=== PATIENT | female | born 1980 | race Caucasian/White ===

== ENCOUNTER → 2016-05-26 | Day surgery (SDC) | payer MEDICAID, OTHER ==
[~2016-05-26] MED LIST: FENTANYL PF 100 MCG/2 ML VIAL. IV PRN; FLUO10CA13 PO; IV RINGERS,LACTATED 1000ML 1,000 ML IV SCH; LIDOCAINE 1% 1 ML SYRINGE. ID PRN; LIDOCAINE 2% PF Vial for OR 5 ML VIAL. ONE; ONDANSETRON PF 4 MG/2 ML VIAL. IV PRN; PROCHLORPERAZINE 10 MG/2 ML VIAL. IV PRN; PROPOFOL 20 ML IV ONE
[2016-05-26 12:26] LABS: NEG OBC UR NEG; POS OBC UR POS
[2016-05-26 13:44] VITALS: BP 114/79
--- NOTE | 2016-05-27 14:33 | PATHOLOGY ---
PATHOLOGY REPORT * * * * * * * * FINAL DIAGNOSIS: A. Duodenal biopsy: - No significant pathologic abnormalities. B. Random colon biopsy: - No significant pathologic abnormalities. COMMENT: Sections of the duodenal biopsy reveal segments of duodenal and small intestine mucosa. Where best oriented, the mucosal villi appear normal. There are no sprue-like changes or significant inflammatory changes. Sections of the random colon biopsy reveal multiple segments of colonic mucosa containing a few mucosal-associated lymphoid aggregates. There is no evidence of a chronic destructive colitis, lymphocytic colitis, or collagenous colitis. (JPM:; d/t: 05/27/16) REPORT ELECTRONICALLY SIGNED BY: Wild Tong M.D. DATE/TIME: 05/27/2016 14:32 * * * * * * * * GROSS PATHOLOGY: A. Received in formalin, labeled "Elin Mcmullen-duodenal biopsy" are multiple moncada-brown tissue fragments measuring 0.8 x 0.5 x 0.1 cm in aggregate. Total A1. B. Received in formalin, labeled "Elin Mcmullen-random colon biopsy" are multiple moncada-brown tissue fragments measuring 2.5 x 0.4 x 0.1 cm in aggregate. Total B1. ([facility]; 05/26/2016) INITIAL CPT CODE(S): A; 26532 B; 27816 Professional services [place] [place] [address] Technical services performed by [facility] at [address] [place] [address] [address] [address]. SPECIMEN(S) RECEIVED: A.Duodenal biopsy B.Random colon biopsy CLINICAL HISTORY: N/V, GI bleed PATIENT: STARR ELIN Dodson /AGE: 1 1980 (Age: 36) PATIENT #: [id number] ALT CASE #: SPECIMEN COLLECTION DATE: 05/26/2016 SPECIMEN RECEIVED DATE: 05/26/2016 [facility] - [address] [place] [address] - PHONE: [phone] * * * END OF REPORT * * *
== END | disposition home or self-care (01) ==
LOC: ENDOS 11:32
PROVIDERS: ATTEND Internal Medicine Gastroenterology
DX: K64.0 First degree hemorrhoids (principal); K52.9 Noninfective gastroenteritis and colitis, unspecified; K29.50 Unspecified chronic gastritis without bleeding; K21.9 Gastro-esophageal reflux disease without esophagitis; F41.9 Anxiety disorder, unspecified; Z72.89 Other problems related to lifestyle
CPT/HCPCS: 43239; 45380; 81025; 88305; J2704

== ENCOUNTER 2016-10-20 12:47 | Emergency (ER) | payer SELFPAY ==
[~2016-10-20 12:47] MED LIST changes: -FENTANYL PF 100 MCG/2 ML VIAL. IV PRN; -IV RINGERS,LACTATED 1000ML 1,000 ML IV SCH; -LIDOCAINE 1% 1 ML SYRINGE. ID PRN; -LIDOCAINE 2% PF Vial for OR 5 ML VIAL. ONE; -ONDANSETRON PF 4 MG/2 ML VIAL. IV PRN; -PROCHLORPERAZINE 10 MG/2 ML VIAL. IV PRN; -PROPOFOL 20 ML IV ONE
[2016-10-20 13:03] VITALS: BP 126/90
[2016-10-20] MEDS ORDERED: LORazepam 1 MG TABLET PO ONE (14:00)
--- NOTE | 2016-10-20 14:17 | PHYS DOC ---
Past Medical History Past Medical History: Anxiety, Depression, Other Additional Past Medical Histor: multipersonality disorder, gastritis; PTSD Past Surgical History: No Surgical History, Tubal ligation Alcohol Use: Heavy Drug Use: Marijuana Adult General Chief Complaint Chief Complaint: ANXIETY/PANIC ATTACK HPI HPI 28-year-old female presenting to the emergency department after having an anxiety attack. She reports feeling very anxious and having tunnel vision and feeling short of breath with numbness in her hands bilaterally. This happened while she was driving at 10 AM. She pulled over and had her bring her in for further evaluation and care. During history physical the patient is feeling better but accepted my offer for a small dose of calling medication. Onset today. Location generalized. Duration intermittent. No alleviating or exacerbating factors present. Review of systems is negative for fevers chills nausea vomiting diarrhea constipation. All other review of systems is negative unless otherwise noted in history of present illness. ED course: 36-year-old female presenting to the emergency department today with anxiety attack/panic attack. Patient received Ativan which improved her symptoms significantly. She was feeling much better on reexamination and subsequently discharged home. The patient was then discharged home in stable condition to follow up with their primary care physician over the next 2-3 days. They were to return if their symptoms worsened or if they were concerned for any reason. [id number] discharge instructions and return precautions were given. Patient's questions were answered to their satisfaction. Patient is comfortable plan. Review of Systems Review of Systems SEE ABOVE. Current Medications Current Medications Current Medications Medications (Trade) Dose Ordered Sig/[facility] Start Time Stop Time Status Last Admin Dose Admin Lorazepam (Ativan) 1 mg 1X ONCE 10/20/16 14:00 10/20/16 14:01 DC 10/20/16 14:02 1 MG Allergies Allergies Allergies Coded Allergies Type Severity Reaction Last Updated Verified hydrocodone Adverse Reaction Mild Nausea and Vomiting 05/26/16 Yes Physical Exam Physical Exam SEE ABOVE. Normal physical exam. Constitutional: Well developed, well nourished, no acute distress, non-toxic appearance. [] HENT: Normocephalic, atraumatic, bilateral external ears normal, oropharynx moist, no oral exudates, nose normal. [] Eyes: PERRLA, EOMI, conjunctiva normal, no discharge. [] Neck: Normal range of motion, no tenderness, supple, no stridor. [] Cardiovascular:Heart rate regular rhythm, no murmur [] Lungs & Thorax: Bilateral breath sounds clear to auscultation [] Abdomen: Bowel sounds normal, soft, no tenderness, no masses, no pulsatile masses. [] Skin: Warm, dry, no erythema, no rash. [] Back: No tenderness, no CVA tenderness. [] Extremities: No tenderness, no cyanosis, no clubbing, ROM intact, no edema. [] Neurologic: Alert and oriented X 3, normal motor function, normal sensory function, no focal deficits noted. [] Psychologic: Affect normal, judgement normal, mood normal. [] Current Patient Data Vital Signs Vital Signs Date Time Temp Pulse Resp B/P (MAP) Pulse Ox O2 Delivery O2 Flow Rate FiO2 10/20/16 13:03 97.9 77 18 126/90 (102) 99 Room Air 97.9 EKG EKG [] Radiology/Procedures Radiology/Procedures [] Course & Med Decision Making Course & Med Decision Making Pertinent Labs and Imaging studies reviewed. (See chart for details) [] Dragon Disclaimer Dragon Disclaimer This electronic medical record was generated, in whole or in part, using a voice recognition dictation system. Departure Departure Impression: Primary Impression: Panic attack Disposition: HOME, SELF-CARE Condition: STABLE Referrals: TU JENKINS MD (PCP) Patient Instructions: Anxiety and Panic Attacks NOHELIA MACARIO MD Oct 20, 2016 14:16
== END 2016-10-20 14:29 | disposition home or self-care (01) ==
LOC: ER 12:47
DX: F41.0 Panic disorder [episodic paroxysmal anxiety] (principal); F43.10 Post-traumatic stress disorder, unspecified; F32.9 Major depressive disorder, single episode, unspecified; F12.10 Cannabis abuse, uncomplicated; Z88.5 Allergy status to narcotic agent
CPT/HCPCS: 99284

== ENCOUNTER 2017-01-25 09:35 | Emergency (ER) | payer SELFPAY ==
[~2017-01-25] VITALS: Ht 162.6 cm; Wt 63.0 kg
--- NOTE | 2017-01-25 10:12 | PHYS DOC ---
Past Medical History Past Medical History: Anxiety, Depression, Other Additional Past Medical Histor: multipersonality disorder, gastritis; PTSD Past Surgical History: No Surgical History, Tubal ligation Alcohol Use: Heavy Drug Use: Marijuana Adult General Chief Complaint Chief Complaint: ABDOMINAL PAIN HPI HPI Patient is a 36 year old female presents to the emergency department with a history of abdominal pain and discomfort for the last 2 days. Patient states she has had vomiting the last 2 mornings. She denies fever, chills. She states she has had diarrhea for sometime in which she has seen a GI and had a colonoscopy completed that was negative. She states she was suppose to have followed up with them however did not. She does state she had eaten fried greasy fatty foods the night before vomiting and having abdominal pain. She has not taken anything for the pain and discomfort. Patient denies any change in her vaginal discharge. Review of Systems Review of Systems Constitutional: Denies fever or chills [] Eyes: Denies change in visual acuity, redness, or eye pain [] HENT: Denies nasal congestion or sore throat [] Respiratory: Denies cough or shortness of breath [] Cardiovascular: No additional information not addressed in HPI [] GI: Denies abdominal pain, nausea, vomiting, bloody stools or diarrhea [] : Denies dysuria or hematuria [] Musculoskeletal: Denies back pain or joint pain [] Integument: Denies rash or skin lesions [] Neurologic: Denies headache, focal weakness or sensory changes [] Endocrine: Denies polyuria or polydipsia [] Current Medications Current Medications Current Medications Medications (Trade) Dose Ordered Sig/[facility] Start Time Stop Time Status Last Admin Dose Admin Pantoprazole Sodium (Protonix) 40 mg 1X ONCE 01/25/17 10:15 01/25/17 10:16 DC 01/25/17 10:23 40 MG Allergies Allergies Allergies Coded Allergies Type Severity Reaction Last Updated Verified hydrocodone Adverse Reaction Mild Nausea and Vomiting 05/26/16 Yes Physical Exam Physical Exam Constitutional: Well developed, well nourished, no acute distress, non-toxic appearance. [] HENT: Normocephalic, atraumatic, bilateral external ears normal, oropharynx moist, no oral exudates, nose normal. [] Eyes: PERRLA, EOMI, conjunctiva normal, no discharge. [] Neck: Normal range of motion, no tenderness, supple, no stridor. [] Cardiovascular:Heart rate regular rhythm, no murmur [] Lungs & Thorax: Bilateral breath sounds clear to auscultation [] Abdomen: Bowel sounds normal, soft, Right upper quadrant abdominal tenderness and right suprapubic tenderness, no masses, no pulsatile masses. [] Skin: Warm, dry, no erythema, no rash. [] Extremities: No tenderness, no cyanosis, no clubbing, ROM intact, no edema. [] Neurologic: Alert and oriented X 3, normal motor function, normal sensory function, no focal deficits noted. [] Psychologic: Affect normal, judgement normal, mood normal. [] Current Patient Data Vital Signs Vital Signs Date Time Temp Pulse Resp B/P (MAP) Pulse Ox O2 Delivery O2 Flow Rate FiO2 01/25/17 11:30 60 115/69 (84) 98 Nasal Cannula 01/25/17 11:00 18 01/25/17 09:57 97.7 97.7 Lab Values Laboratory Tests Test 01/25/17 09:54 01/25/17 10:02 01/25/17 10:30 01/25/17 10:59 Urine Collection Type Unknown Urine Color Yellow Urine Clarity Clear Urine pH 6.5 Urine Specific [place] 1.015 Urine Protein Negative mg/dL (NEG-TRACE) Urine Glucose (UA) Negative mg/dL (NEG) Urine Ketones (Stick) Negative mg/dL (NEG) Urine Blood Negative (NEG) Urine Nitrite Negative (NEG) Urine Bilirubin Negative (NEG) Urine Urobilinogen Dipstick 0.2 mg/dL (0.2 mg/dL) Urine Leukocyte Esterase Small (NEG) Urine RBC 0 /HPF (0-2) Urine WBC 20-40 /HPF (0-4) Urine Squamous Epithelial Cells Few /LPF Urine Bacteria Many /HPF (0-FEW) POC Urine HCG, Qualitative Hcg negative (Negative) White Blood Count 8.0 x10^3/uL (4.0-11.0) Red Blood Count 4.37 x10^6/uL (3.50-5.40) Hemoglobin 14.1 g/dL (12.0-15.5) Hematocrit 41.4 % (36.0-47.0) Mean Corpuscular Volume 95 fL (79-100) Mean Corpuscular Hemoglobin 32 pg (25-35) Mean Corpuscular Hemoglobin Concent 34 g/dL (31-37) Red Cell Distribution Width 14.3 % (11.5-14.5) Platelet Count 346 x10^3/uL (140-400) Neutrophils (%) (Auto) 68 % (31-73) Lymphocytes (%) (Auto) 23 % (24-48) L Monocytes (%) (Auto) 7 % (0-9) Eosinophils (%) (Auto) 1 % (0-3) Basophils (%) (Auto) 1 % (0-3) Neutrophils # (Auto) 5.4 x10^3uL (1.8-7.7) Lymphocytes # (Auto) 1.8 x10^3/uL (1.0-4.8) Monocytes # (Auto) 0.5 x10^3/uL (0.0-1.1) Eosinophils # (Auto) 0.1 x10^3/uL (0.0-0.7) Basophils # (Auto) 0.1 x10^3/uL (0.0-0.2) Sodium Level 140 mmol/L (136-145) Potassium Level 3.7 mmol/L (3.5-5.1) Chloride Level 105 mmol/L (98-107) Carbon Dioxide Level 28 mmol/L (21-32) Anion Gap 7 (6-14) Blood Urea Nitrogen 11 mg/dL (7-20) Creatinine 0.6 mg/dL (0.6-1.0) Estimated GFR (Cockcroft-Gault) 111.9 BUN/Creatinine Ratio 18 (6-20) Glucose Level 96 mg/dL (70-99) Calcium Level 8.8 mg/dL (8.5-10.1) Total Bilirubin 0.7 mg/dL (0.2-1.0) Aspartate Amino Transferase (AST) 13 U/L (15-37) L Alanine Aminotransferase (ALT) 17 U/L (14-59) Alkaline Phosphatase 91 U/L (46-116) Total Protein 7.5 g/dL (6.4-8.2) Albumin 3.6 g/dL (3.4-5.0) Albumin/Globulin Ratio 0.9 (1.0-1.7) L Amylase Level 49 U/L (25-115) Lipase 175 U/L (73-393) Thyroid Stimulating Hormone (TSH) 1.635 uIU/mL (0.358-3.74) Troponin I Quantitative < 0.017 ng/mL (0.000-0.055) Laboratory Tests 01/25/17 10:30 Laboratory Tests 01/25/17 10:30 EKG EKG [] Radiology/Procedures Radiology/[place] [address] IMAGING REPORT Signed PATIENT: ALEXA CLEMENTS ACCOUNT: [id number] : 1980 LOCATION: ER AGE: 36 SEX: F EXAM STATUS: REG ER ORD. PHYSICIAN: KALLI MAY APRN REASON: chest discomfort with exspiration PROCEDURE: CHEST PA & LATERAL Indication chest discomfort. Frontal and lateral views of the chest were obtained. No prior imaging of the chest is available. The heart, pulmonary vessels and mediastinum appear normal. The lungs are clear. No abnormality is seen. IMPRESSION: Normal study DICTATED and SIGNED BY: DADA HERRERA MD DATE: 01/25/17 1051 CC: TU JENKINS MD; KALLI MAY APRN ~ [[address] [address] IMAGING REPORT Signed PATIENT: ALEXA CLEMENTS ACCOUNT: [id number] : 1980 LOCATION: ER AGE: 36 SEX: F EXAM STATUS: REG ER ORD. PHYSICIAN: KALLI MAY APRN REASON: right upper quadrant abdominal pain with nausea and vomiting PROCEDURE: ABDOMEN LTD Right upper quadrant abdominal ultrasound, 01/25/2017: History: Right upper quadrant pain The gallbladder is within normal limits in size. There is no sonographic evidence of cholelithiasis. The gallbladder pena are not thickened. No bile duct dilatation is seen. The visualized portions of the liver and pancreas are unremarkable. The right kidney demonstrates increased echogenicity in the medullary regions. There is no evidence of hydronephrosis. No renal mass is seen. IMPRESSION: 1. No gallbladder abnormality is detected. 2. Increased medullary echogenicity in the right kidney which can be due to a variety of causes including medullary sponge kidney with or without nephrocalcinosis, nephrocalcinosis due to other causes such as hyperparathyroidism or various medications. DICTATED and SIGNED BY: TIMOTHY AGUILLON MD DATE: 01/25/17 1058 CC: TU JENKINS MD; KALLI MAY [employer] ~ ] Course & Med Decision Making Course & Med Decision Making Pertinent Labs and Imaging studies reviewed. (See chart for details) Chest x-ray was negative for any abnormality. Ultrasound revealed no gallbladder abnormality detected there was an increased medullary echogenicity in the right kidney which may be due to Monday of causes including medullary sponge kidney with or without no frontal Cyanosis no frontal sinus stenosis due to other causes such as hyperparathyroidism her various medications. Patient's CBC, CMP, TSH was normal. Patient's urine was positive for urinary tract infection she will be treated with Macrobid will be discharged home with recommendations for plenty of fluids such as water and cranberry juice. Recommended to avoid cranberry juice cocktail, carbonate beverages, caffeine, citrus fruits, alcohol, sees her considered irritants to the bladder. Patient was provided with signs and symptoms to return back to the emergency department. Recommended that she follow up with her primary care physician in the next 3-5 days. Patient agrees with discharge instructions treatment regimens and follow-up recommendations. All questions and concerns was answered at the patient's bedside. [] Dragon Disclaimer Dragon Disclaimer This electronic medical record was generated, in whole or in part, using a voice recognition dictation system. Departure Departure Impression: Primary Impression: Urinary tract infection Disposition: 01 HOME, SELF-CARE Condition: STABLE Referrals: TU JENKINS MD (PCP) Patient Instructions: Urinary Tract Infection, [id number] Additional Instructions: Activity as tolerated. Medication as prescribed. Drink plenty of fluids such as water and cranberry juice. Avoid cranberry juice cocktail, carbonate beverages, citrus fruits, caffeine, alcohol, as these are considered irritants to the bladder. Follow-up the primary care physician in the next 3-5 days. Return back to emergency prior signs symptoms of become worse. Scripts Nitrofurantoin Monohyd/M-Cryst (MACROBID 100 MG CAPSULE) 100 Mg Capsule 1 CAP PO BID, #14 CAP Prov: KALLI MAY APRN 01/25/17 Problem Qualifiers Primary Impression: Urinary tract infection Urinary tract infection type: site unspecified Hematuria presence: without hematuria Qualified Codes: N39.0 - Urinary tract infection, site not specified KALLI MAY APRN Jan 25, 2017 10:12
[2017-01-25] MEDS ORDERED: PANTOPRAZOLE 40 MG TABLET.DR. PO ONE (10:15)
[2017-01-25 10:32] LABS: BILIRUBIN,URINE NEGATIVE (NEG); GLUCOSE,URINE NEGATIVE (NEG); NITRITE,URINE NEGATIVE (NEG); PH,URINE 6.5; PROTEIN,URINE NEGATIVE (NEG-TRACE); UROBILINOGEN,URINE 0.2 mg/dL (0.2 mg/dL)
--- NOTE | 2017-01-25 10:54 | RAD ---
Indication chest discomfort. Frontal and lateral views of the chest were obtained. No prior imaging of the chest is available. The heart, pulmonary vessels and mediastinum appear normal. The lungs are clear. No abnormality is seen. IMPRESSION: Normal study
[2017-01-25 10:58] LABS: BACTERIA,URINE MANY /HPF (0-FEW); RBC,URINE 0 /HPF (0-2); SQUAMOUS EPITHELIAL CELL,UR FEW /LPF; WBC,URINE 20-40 /HPF (0-4)
--- NOTE | 2017-01-25 11:08 | RAD ---
Right upper quadrant abdominal ultrasound, 01/25/2017: History: Right upper quadrant pain The gallbladder is within normal limits in size. There is no sonographic evidence of cholelithiasis. The gallbladder pena are not thickened. No bile duct dilatation is seen. The visualized portions of the liver and pancreas are unremarkable. The right kidney demonstrates increased echogenicity in the medullary regions. There is no evidence of hydronephrosis. No renal mass is seen. IMPRESSION: 1. No gallbladder abnormality is detected. 2. Increased medullary echogenicity in the right kidney which can be due to a variety of causes including medullary sponge kidney with or without nephrocalcinosis, nephrocalcinosis due to other causes such as hyperparathyroidism or various medications.
[2017-01-25 11:11] LABS: BASO # 0.1 x10^3/uL (0.0-0.2); BASO % 1 % (0-3); EOS % 1 % (0-3); HEMATOCRIT 41.4 % (36.0-47.0); HEMOGLOBIN 14.1 g/dL (12.0-15.5); LYMPH # 1.8 x10^3/uL (1.0-4.8); LYMPH % 23 % (24-48); MEAN CORPUSCULAR HEMOGLOBIN 32 pg (25-35); MEAN CORPUSCULAR HGB CONC 34 g/dL (31-37); MEAN CORPUSCULAR VOLUME 95 fL (79-100); MONO % 7 % (0-9); NEUT % 68 % (31-73); PLATELET COUNT 346 x10^3/uL (140-400); RED BLOOD COUNT 4.37 x10^6/uL (3.50-5.40); RED CELL DISTRIBUTION WIDTH 14.3 % (11.5-14.5)
[2017-01-25 11:19] LABS: CALCIUM 8.8 mg/dL (8.5-10.1); CREATININE 0.6 mg/dL (0.6-1.0); GFR 111.9; POTASSIUM 3.7 mmol/L (3.5-5.1)
[2017-01-25 11:24] LABS: ALBUMIN 3.6 g/dL (3.4-5.0); ALBUMIN/GLOBULIN RATIO 0.9 (1.0-1.7); TOTAL BILIRUBIN 0.7 mg/dL (0.2-1.0); TOTAL PROTEIN 7.5 g/dL (6.4-8.2)
[2017-01-25] MEDS ORDERED: NITR100C62 PO (12:18)
[2017-01-25 12:32] VITALS: BP 110/79
== END 2017-01-25 12:35 | disposition home or self-care (01) ==
LOC: ER 09:35
DX: N39.0 Urinary tract infection, site not specified (principal); R19.7 Diarrhea, unspecified; F43.10 Post-traumatic stress disorder, unspecified; F32.9 Major depressive disorder, single episode, unspecified; F41.9 Anxiety disorder, unspecified; Z88.5 Allergy status to narcotic agent; Z98.51 Tubal ligation status
CPT/HCPCS: 36415; 71020; 76705; 80053; 81001; 81025; 82150; 83690; 84443; 84484; 85025; 87086; 99285-25

== ENCOUNTER 2017-09-05 09:02 | Emergency (ER) | payer SELFPAY ==
[2017-09-05] MEDS: IBUPROFEN 800 MG TABLET. PO (11:07)
[2017-09-05 11:15] LABS: URINE HCG POC HCG NEGATIVE (Negative)
[2017-09-05 11:23] LABS: BILIRUBIN,URINE NEGATIVE (NEG); CLARITY,URINE CLEAR; COLOR,URINE YELLOW; GLUCOSE,URINE NEGATIVE (NEG); NITRITE,URINE POSITIVE (NEG); PH,URINE 7.5; PROTEIN,URINE NEGATIVE (NEG-TRACE); UROBILINOGEN,URINE 0.2 mg/dL (0.2 mg/dL)
[2017-09-05 11:49] LABS: BACTERIA,URINE MANY /HPF (0-FEW); SQUAMOUS EPITHELIAL CELL,UR FEW /LPF
== END 2017-09-05 12:21 | disposition home or self-care (01) ==
LOC: ER 09:02
DX: R07.81 Pleurodynia (principal); R91.1 Solitary pulmonary nodule; N39.0 Urinary tract infection, site not specified; K29.70 Gastritis, unspecified, without bleeding; F12.10 Cannabis abuse, uncomplicated; Z98.51 Tubal ligation status
CPT/HCPCS: 71250; 81001; 81025; 99285

== ENCOUNTER 2017-09-10 10:00 | Emergency (ER) | payer SELFPAY ==
[2017-09-10] MEDS: ALPRAZolam 0.5 MG TABLET PO (10:51)
[2017-09-10] MEDS: LIDOCAINE 1% PF 2 ML VIAL. INJ (11:08)
[2017-09-10] MEDS: cefTRIAXone IM 1 GM VIAL IM (11:08)
== END 2017-09-10 11:21 | disposition home or self-care (01) ==
LOC: ER 11:21
DX: F41.9 Anxiety disorder, unspecified (principal); F32.9 Major depressive disorder, single episode, unspecified; F10.10 Alcohol abuse, uncomplicated; F12.10 Cannabis abuse, uncomplicated; Z98.51 Tubal ligation status
CPT/HCPCS: 96372; 99284; J0696

== ENCOUNTER 2018-01-23 08:09 | Emergency (ER) | payer OTHER ==
[~2018-01-23] VITALS: Ht 162.6 cm; Wt 61.2 kg
[~2018-01-23 08:09] MED LIST changes: +ALPR0.5T PO; +NITR100C62 PO; +SULF1TAB23 PO; +TRAM50TA PO
[2018-01-23] MEDS ORDERED: ONDANSETRON ODT 4 MG TAB.RAPDIS. PO ONE (08:45)
[2018-01-23 09:41] LABS: BILIRUBIN,URINE NEGATIVE (NEG); CLARITY,URINE CLEAR; COLOR,URINE YELLOW; NITRITE,URINE NEGATIVE (NEG); PH,URINE 6.5; PROTEIN,URINE NEGATIVE (NEG-TRACE); UROBILINOGEN,URINE 0.2 mg/dL (0.2 mg/dL)
[2018-01-23 10:03] LABS: SQUAMOUS EPITHELIAL CELL,UR FEW /LPF
[2018-01-23 10:04] LABS: HYALINE CASTS, URINE OCCASIONAL /HPF
[2018-01-23 10:05] LABS: BACTERIA,URINE FEW /HPF (0-FEW); RBC,URINE 0 /HPF (0-2)
[2018-01-23] MEDS ORDERED: ONDA4TAB7 PO (10:15)
--- NOTE | 2018-01-23 10:15 | PHYS DOC ---
Past Medical History Past Medical History: Anxiety, Depression, Other Additional Past Medical Histor: multipersonality disorder, gastritis; PTSD Past Surgical History: Tubal ligation, Other Additional Past Surgical Histo: Dental surgery. Additional Information: About 2 PPD. Alcohol Use: Heavy Additional Information: Weekends now-does not drink daily at this time. Drug Use: Marijuana Social History Narrative: Last smoked yesterday. Adult General Chief Complaint Chief Complaint: NAUSEA/VOMITING/DIARRHA HPI HPI Patient is a 37 year old female history of anxiety, PTSD and reported multiple personality disorder who presents with nausea for the past 2 days. Patient reports occasional vomiting and watery diarrhea. Denies lightheadedness, dizziness, fatigue, bloody stools dark tarry stools. No fevers chills or sweats. No recent antibiotics. She is concerned that she is been unable to take her psychiatric medications, but is able to tolerate oral fluids. [] Review of Systems Review of Systems Review symptoms as per history of present illness. All other review symptoms are negative. All other systems were reviewed and found to be within normal limits, except as documented in this note. Current Medications Current Medications Current Medications Medications (Trade) Dose Ordered Sig/[facility] Start Time Stop Time Status Last Admin Dose Admin Ondansetron HCl (Zofran Odt) 8 mg 1X ONCE 01/23/18 08:45 01/23/18 08:46 DC 01/23/18 09:27 8 MG Allergies Allergies Allergies Coded Allergies Type Severity Reaction Last Updated Verified No Known Drug Allergies 09/05/17 No Physical Exam Physical Exam Constitutional: Well developed, well nourished, no acute distress, non-toxic appearance. [] HENT: Normocephalic, atraumatic, bilateral external ears normal, oropharynx moist, no oral exudates, nose normal. [] Eyes: PERRLA, EOMI, conjunctiva normal, no discharge. [] Neck: Normal range of motion, no tenderness, supple, no stridor. [] Cardiovascular:Heart rate regular rhythm, no murmur [] Lungs & Thorax: Bilateral breath sounds clear to auscultation. [] Abdomen: Bowel sounds normal, soft, no tenderness. [] Skin: Warm, dry, no erythema. [] Back: No tenderness. [] Extremities: No tenderness, no edema. [] Neurologic: Alert and oriented X 3, normal motor function, normal sensory function, no focal deficits noted. [] Psychologic: Affect normal, judgement normal, mood normal. [] Current Patient Data Vital Signs Vital Signs Date Time Temp Pulse Resp B/P (MAP) Pulse Ox O2 Delivery O2 Flow Rate FiO2 01/23/18 08:18 97.6 65 16 126/70 (88) 97 Room Air 97.6 Lab Values Laboratory Tests Test 01/23/18 09:20 Urine Collection Type Unknown Urine Color Yellow Urine Clarity Clear Urine pH 6.5 Urine Specific [place] 1.020 Urine Protein Negative mg/dL (NEG-TRACE) Urine Glucose (UA) Negative mg/dL (NEG) Urine Ketones (Stick) Negative mg/dL (NEG) Urine Blood Negative (NEG) Urine Nitrite Negative (NEG) Urine Bilirubin Negative (NEG) Urine Urobilinogen Dipstick 0.2 mg/dL (0.2 mg/dL) Urine Leukocyte Esterase Small (NEG) Urine RBC 0 /HPF (0-2) Urine WBC 5-10 /HPF (0-4) Urine Squamous Epithelial Cells Few /LPF Urine Bacteria Few /HPF (0-FEW) Urine Hyaline Casts Occasional /HPF Urine Mucus Slight /LPF EKG EKG [] Radiology/Procedures Radiology/Procedures [] Course & Med Decision Making Course & Med Decision Making Pertinent Labs and Imaging studies reviewed. (See chart for details) [Abdomen soft, nontender. Previous tubal ligation. Nausea symptoms improved/ resolved with Zofran. Patient's able to tolerate oral intake. UA, symptoms. Will treat. Recommend PCP follow-up and supportive care watchful waiting. Return precautions reviewed.] Dragon Disclaimer Dragon Disclaimer This electronic medical record was generated, in whole or in part, using a voice recognition dictation system. Departure Departure Impression: Primary Impression: Nausea & vomiting Additional Impression: Urinary tract infection Disposition: 01 HOME, SELF-CARE Condition: GOOD Referrals: NO PCP (PCP) Patient Instructions: Nausea and Vomiting, [id number], Urinary Tract Infection, [id number] Additional Instructions: Please take nausea medication and antibiotic as directed. Drink clear liquids only for the next 6-12 hours, then gradually increase to bland diet as tolerated. Follow-up with your PCP in 1-2 days for reevaluation as needed if symptoms persist. Return to the ED if new or worsening symptoms. Scripts Ondansetron Hcl (ZOFRAN) 4 Mg Tablet 1 TAB PO Q6HRS, #10 TAB 0 Refills Prov: NORI YI DO 01/23/18 Problem Qualifiers NORI YI DO Jan 23, 2018 10:15
[2018-01-23] MEDS ORDERED: NITR100C62 PO (10:19)
[2018-01-23 10:30] VITALS: BP 106/68
== END 2018-01-23 10:30 | disposition home or self-care (01) ==
LOC: ER 08:09
DX: N39.0 Urinary tract infection, site not specified (principal); R19.7 Diarrhea, unspecified; F17.200 Nicotine dependence, unspecified, uncomplicated; F10.20 Alcohol dependence, uncomplicated; F43.10 Post-traumatic stress disorder, unspecified; Z98.51 Tubal ligation status
CPT/HCPCS: 81001; 87086; 99284; Q0162

== ENCOUNTER 2018-02-20 08:39 | Emergency (ER) | payer OTHER ==
[~2018-02-20] VITALS: Ht 162.6 cm; Wt 63.5 kg
[~2018-02-20 08:39] MED LIST changes: +ONDA4TAB7 PO
[2018-02-20] MEDS ORDERED: IV NORMAL SALINE 1000ML BAG 1,000 ML IV ONE (09:30)
[2018-02-20 09:45] LABS: BILIRUBIN,URINE NEGATIVE (NEG); CLARITY,URINE CLEAR; COLOR,URINE YELLOW; NITRITE,URINE NEGATIVE (NEG); PROTEIN,URINE NEGATIVE (NEG-TRACE); UROBILINOGEN,URINE 0.2 mg/dL (0.2 mg/dL)
[2018-02-20 10:01] LABS: CALCIUM 9.2 mg/dL (8.5-10.1); CREATININE 0.7 mg/dL (0.6-1.0); GFR 93.2
[2018-02-20 10:09] LABS: BASO # 0.1 x10^3/uL (0.0-0.2); BASO % 1 % (0-3); EOS # 0.1 x10^3/uL (0.0-0.7); EOS % 1 % (0-3); HEMATOCRIT 43.9 % (36.0-47.0); HEMOGLOBIN 15.1 g/dL (12.0-15.5); LYMPH # 1.8 x10^3/uL (1.0-4.8); LYMPH % 19 % (24-48); MEAN CORPUSCULAR HEMOGLOBIN 33 pg (25-35); MEAN CORPUSCULAR HGB CONC 34 g/dL (31-37); MEAN CORPUSCULAR VOLUME 95 fL (79-100); MONO # 0.7 x10^3/uL (0.0-1.1); MONO % 8 % (0-9); NEUT # 6.9 x10^3uL (1.8-7.7); NEUT % 72 % (31-73); PLATELET COUNT 347 x10^3/uL (140-400); RED BLOOD COUNT 4.61 x10^6/uL (3.50-5.40); RED CELL DISTRIBUTION WIDTH 14.1 % (11.5-14.5); WHITE BLOOD COUNT 9.6 x10^3/uL (4.0-11.0)
[2018-02-20 10:12] LABS: BACTERIA,URINE FEW /HPF (0-FEW); SQUAMOUS EPITHELIAL CELL,UR FEW /LPF
[2018-02-20 10:15] LABS: FREE T4 0.97 ng/dL (0.76-1.46); THYROID STIM HORMONE (TSH) 0.477 uIU/mL (0.358-3.74)
[2018-02-20 10:30] VITALS: BP 108/71
--- NOTE | 2018-02-20 10:37 | PHYS DOC ---
Past Medical History Past Medical History: Anxiety, Bipolar, Depression, Other Additional Past Medical Histor: multipersonality disorder, gastritis; PTSD Past Surgical History: Tubal ligation, Other Additional Past Surgical Histo: Dental surgery Alcohol Use: None Drug Use: Marijuana Adult General Chief Complaint Chief Complaint: NAUSEA/VOMITING/[facility] HPI Patient is a 37 year old female who presents with multiple vague complaints. First, the patient states she has been crying lately more than normal. When asked how long this has been going on, the patient replies 4 months. She does have a history of depression and anxiety. She is currently taking medications for these but states she has been out of her Xanax. She is not requesting a refill of this medication. She denies suicidality or hallucinations. The patient also complains of some loss of appetite which has also been going on for several months. The patient describes some intermittent episodes of nausea. When she attempts to eat food, she does not immediately vomited the food up or have difficulty with swallowing food. Rather, she simply loses her desire to keep eating and the food does not taste as good. The patient has been having all of these problems for several months. She has a follow-up appointment already scheduled 2 days from now with her primary care physician. When asked what what emergent concerns she had today or why she came to the ER today, the patient does not have specific acute or emergent complaints. Review of Systems Review of Systems Constitutional: Denies fever or chills Eyes: Denies change in visual acuity HENT: Denies nasal congestion Respiratory: Denies cough or shortness of breath Cardiovascular: No additional information not addressed in HPI GI: Denies abdominal pain : Denies dysuria or hematuria Musculoskeletal: Denies back pain Integument: Denies rash Neurologic: Denies headache or focal neuro complaints Endocrine: Denies polyuria All other systems were reviewed and found to be within normal limits, except as documented in this note. Current Medications Current Medications Current Medications Medications (Trade) Dose Ordered Sig/Earnestine Start Time Stop Time Status Last Admin Dose Admin Sodium Chloride 1,000 ml @ 1,000 mls/hr 1X ONCE 02/20/18 09:30 02/20/18 10:29 DC 02/20/18 09:39 1,000 MLS/HR Allergies Allergies Allergies Coded Allergies Type Severity Reaction Last Updated Verified No Known Drug Allergies 5/22/18 No Physical Exam Physical Exam Constitutional: Well developed, well nourished, no acute distress, non-toxic appearance. [] HENT: Normocephalic, atraumatic, bilateral external ears normal, oropharynx moist, no oral exudates, nose normal. [] Eyes: PERRLA, EOMI, conjunctiva normal, no discharge. [] Neck: Normal range of motion, no tenderness, supple, no stridor. [] Cardiovascular:Heart rate regular rhythm, no murmur [] Lungs & Thorax: Bilateral breath sounds clear to auscultation [] Abdomen: Bowel sounds normal, soft, no tenderness, no masses, no pulsatile masses. [] Skin: Warm, dry, no erythema, no rash. [] Back: No tenderness, no CVA tenderness. [] Extremities: No tenderness, no cyanosis, no clubbing, ROM intact, no edema. [] Neurologic: Alert and oriented X 3, normal motor function, normal sensory function, no focal deficits noted. [] Psychologic: Affect normal, judgement normal, mood normal. [] Current Patient Data Vital Signs Vital Signs Date Time Temp Pulse Resp B/P (MAP) Pulse Ox O2 Delivery O2 Flow Rate FiO2 02/20/18 09:12 97.8 78 18 121/79 (93) 99 Room Air 97.8 Lab Values Laboratory Tests Test 02/20/18 09:35 02/20/18 09:42 Urine Collection Type Unknown Urine Color Yellow Urine Clarity Clear Urine pH 6.0 Urine Specific Beauty 1.015 Urine Protein Negative mg/dL (NEG-TRACE) Urine Glucose (UA) Negative mg/dL (NEG) Urine Ketones (Stick) Negative mg/dL (NEG) Urine Blood Small (NEG) Urine Nitrite Negative (NEG) Urine Bilirubin Negative (NEG) Urine Urobilinogen Dipstick 0.2 mg/dL (0.2 mg/dL) Urine Leukocyte Esterase Negative (NEG) Urine RBC 1-2 /HPF (0-2) Urine WBC 1-4 /HPF (0-4) Urine Squamous Epithelial Cells Few /LPF Urine Bacteria Few /HPF (0-FEW) White Blood Count 9.6 x10^3/uL (4.0-11.0) Red Blood Count 4.61 x10^6/uL (3.50-5.40) Hemoglobin 15.1 g/dL (12.0-15.5) Hematocrit 43.9 % (36.0-47.0) Mean Corpuscular Volume 95 fL (79-100) Mean Corpuscular Hemoglobin 33 pg (25-35) Mean Corpuscular Hemoglobin Concent 34 g/dL (31-37) Red Cell Distribution Width 14.1 % (11.5-14.5) Platelet Count 347 x10^3/uL (140-400) Neutrophils (%) (Auto) 72 % (31-73) Lymphocytes (%) (Auto) 19 % (24-48) L Monocytes (%) (Auto) 8 % (0-9) Eosinophils (%) (Auto) 1 % (0-3) Basophils (%) (Auto) 1 % (0-3) Neutrophils # (Auto) 6.9 x10^3uL (1.8-7.7) Lymphocytes # (Auto) 1.8 x10^3/uL (1.0-4.8) Monocytes # (Auto) 0.7 x10^3/uL (0.0-1.1) Eosinophils # (Auto) 0.1 x10^3/uL (0.0-0.7) Basophils # (Auto) 0.1 x10^3/uL (0.0-0.2) Sodium Level 140 mmol/L (136-145) Potassium Level 4.0 mmol/L (3.5-5.1) Chloride Level 104 mmol/L (98-107) Carbon Dioxide Level 26 mmol/L (21-32) Anion Gap 10 (6-14) Blood Urea Nitrogen 8 mg/dL (7-20) Creatinine 0.7 mg/dL (0.6-1.0) Estimated GFR (Cockcroft-Gault) 93.2 Glucose Level 108 mg/dL (70-99) H Calcium Level 9.2 mg/dL (8.5-10.1) Thyroid Stimulating Hormone (TSH) 0.477 uIU/mL (0.358-3.74) Free Thyroxine 0.97 ng/dL (0.76-1.46) Laboratory Tests 02/20/18 09:42 Laboratory Tests 02/20/18 09:42 EKG EKG [] Radiology/Procedures Radiology/Procedures [] Course & Med Decision Making Course & Med Decision Making Pertinent Labs and Imaging studies reviewed. (See chart for details) Patient is evaluated in the emergency department. She has a normal physical examination. She has no acute physical or psychiatric complaints. She already has follow-up scheduled with her primary care doctor in 2 days. Basic IV was placed and fluids given. CBC, BMP, thyroid studies, and urinalysis did not reveal any acute findings. Patient is discharged to home. She is advised to follow-up with her primary care doctor as scheduled. Dragon Disclaimer Dragon Disclaimer This electronic medical record was generated, in whole or in part, using a voice recognition dictation system. Departure Departure Referrals: NO PCP (PCP) NOEMI DOMINGUEZ DO Feb 20, 2018 10:37
[2018-02-20] MEDS ORDERED: ALPR0.5T PO (10:41)
== END 2018-02-20 10:45 | disposition home or self-care (01) ==
LOC: ER 08:39
DX: R63.0 Anorexia (principal); R11.0 Nausea; F31.9 Bipolar disorder, unspecified; F43.10 Post-traumatic stress disorder, unspecified; Z98.51 Tubal ligation status
CPT/HCPCS: 36415; 80048; 81001; 84439; 84443; 85025; 99284; J7030

== ENCOUNTER 2018-04-07 08:35 | Day surgery (SDC) | payer MEDICAID, OTHER ==
[~2018-04-07] VITALS: Ht 162.6 cm; Wt 62.2 kg
--- NOTE | 2018-04-07 08:44 | PHYS DOC ---
Past Medical History Past Medical History: Anxiety, Bipolar, Depression, Other Additional Past Medical Histor: multipersonality disorder, gastritis; PTSD Past Surgical History: Tubal ligation, Other Additional Past Surgical Histo: Dental surgery Alcohol Use: None Drug Use: Marijuana Adult General Chief Complaint Chief Complaint: UPPER EXTREMITY INJURY HPI HPI Patient is a 37 year old female who presents with right wrist injury. Patient fell night landing on outstretched hands. She sustained injury to the right wrist. She complains of pain and deformity to the right wrist. No additional injuries. Did not strike head. She last ate or drank prior to midnight this morning. She is right-hand dominant. + tobacco user Review of Systems Review of Systems Constitutional: Denies Eyes: Denies change HENT: Denies Cardiovascular: No additional information not addressed in HPI GI: Denies nausea or vomiting : Denies Musculoskeletal: Denies back pain Integument: Denies rash or skin lesions Neurologic: Denies headache All other systems were reviewed and found to be within normal limits, except as documented in this note. Current Medications Current Medications Current Medications Medications (Trade) Dose Ordered Sig/Earnestine Start Time Stop Time Status Last Admin Dose Admin Fentanyl Citrate (Fentanyl 2ml Vial) 100 mcg STK-MED ONCE 04/07/18 12:54 04/07/18 12:55 DC Hydromorphone HCl (Dilaudid) 0.5 mg PRN Q10MIN PRN 04/07/18 12:30 04/08/18 12:29 Ketorolac Tromethamine (Toradol 30mg Vial) 30 mg 1X ONCE 04/07/18 10:30 04/07/18 10:31 DC 04/07/18 11:07 30 MG Lidocaine HCl (Lidocaine Pf 2% Vial) 5 ml STK-MED ONCE 04/07/18 12:54 04/07/18 12:55 DC Lidocaine HCl (Xylocaine-Mpf 1% 2ml Vial) 2 ml 1X PRN PRN 04/07/18 12:30 04/08/18 12:29 Morphine Sulfate (Morphine Sulfate) 1 mg PRN Q10MIN PRN 04/07/18 12:30 04/08/18 12:29 Ondansetron HCl (Zofran) 4 mg PRN Q6HRS PRN 04/07/18 12:30 04/08/18 12:29 Prochlorperazine Edisylate (Compazine) 5 mg PACU PRN PRN 04/07/18 12:30 04/08/18 12:29 Propofol 20 ml @ As Directed STK-MED ONCE 04/07/18 12:54 04/07/18 12:55 DC Ringer's Solution 1,000 ml @ 30 mls/hr Q24H 04/07/18 12:19 04/08/18 00:18 Allergies Allergies Allergies Coded Allergies Type Severity Reaction Last Updated Verified No Known Drug Allergies 09/05/17 No Physical Exam Physical Exam Constitutional: Well developed, well nourished, no acute distress, non-toxic appearance HENT: Normocephalic, atraumatic, bilateral external ears normal Eyes: PERRLA, EOMI Neck: Normal range of motion, no tenderness Cardiovascular:Heart rate regular rhythm, no murmur Lungs & Thorax: Bilateral breath sounds clear to auscultation Skin: Warm, dry Back: No tenderness Extremities: deformity right wrist. 2+ radial/ulnar pulses. Sensation to light touch intact over all dermatomes of the right hand Neurologic: Alert and oriented X 3 Psychologic: Affect normal Current Patient Data Vital Signs Vital Signs Date Time Temp Pulse Resp B/P (MAP) Pulse Ox O2 Delivery O2 Flow Rate FiO2 04/07/18 08:35 98.1 90 18 118/79 (92) 98 Room Air 98.1 Lab Values Laboratory Tests Test 04/07/18 09:46 White Blood Count 12.7 x10^3/uL (4.0-11.0) H Red Blood Count 4.60 x10^6/uL (3.50-5.40) Hemoglobin 14.6 g/dL (12.0-15.5) Hematocrit 42.9 % (36.0-47.0) Mean Corpuscular Volume 93 fL (79-100) Mean Corpuscular Hemoglobin 32 pg (25-35) Mean Corpuscular Hemoglobin Concent 34 g/dL (31-37) Red Cell Distribution Width 13.8 % (11.5-14.5) Platelet Count 368 x10^3/uL (140-400) Neutrophils (%) (Auto) 77 % (31-73) H Lymphocytes (%) (Auto) 17 % (24-48) L Monocytes (%) (Auto) 6 % (0-9) Eosinophils (%) (Auto) 0 % (0-3) Basophils (%) (Auto) 0 % (0-3) Neutrophils # (Auto) 9.8 x10^3uL (1.8-7.7) H Lymphocytes # (Auto) 2.2 x10^3/uL (1.0-4.8) Monocytes # (Auto) 0.7 x10^3/uL (0.0-1.1) Eosinophils # (Auto) 0.0 x10^3/uL (0.0-0.7) Basophils # (Auto) 0.0 x10^3/uL (0.0-0.2) Maternal Serum HCG Beta Subunit < 1 mIU/mL (0-5) Sodium Level 137 mmol/L (136-145) Potassium Level 3.7 mmol/L (3.5-5.1) Chloride Level 101 mmol/L (98-107) Carbon Dioxide Level 25 mmol/L (21-32) Anion Gap 11 (6-14) Blood Urea Nitrogen 9 mg/dL (7-20) Creatinine 0.6 mg/dL (0.6-1.0) Estimated GFR (Cockcroft-Gault) 111.3 Glucose Level 99 mg/dL (70-99) Calcium Level 9.1 mg/dL (8.5-10.1) Laboratory Tests 04/07/18 09:46 Laboratory Tests 04/07/18 09:46 EKG EKG [] Radiology/Procedures Radiology/Procedures FINDINGS/ impression: There is a complete oblique dorsally angulated fracture of the distal radial metaphysis with extension to the distal radioulnar joint. No extension to the radiocarpal joint seen. Wrist edema noted. Course & Med Decision Making Course & Med Decision Making Pertinent Labs and Imaging studies reviewed. (See chart for details) 08:48: Patient is seen on arrival to her room. RHD female with fall last night and deformity to right wrist. Prior surgical Hx + only for bilateral tubal ligation. Xrays ordered. 09:20: Xray findings as above. Discussed with Dr. Fletcher. Patient will require operative management. IVF's, labs ordered. Xray results are discussed with the patient and all of her questions are answered. She is agreeable to the plan of care. 10:20: OR has several cases scheduled. Patient will be held in the ER pending OR availability. Plan is for same day surgery and dispo from post-op unit. 12:45: Patient taken to the OR. Idalmis Disclaimer Idalmis Disclaimer This electronic medical record was generated, in whole or in part, using a voice recognition dictation system. Departure Departure Disposition: 01 HOME, SELF-CARE Condition: GOOD Referrals: NO PCP (PCP) NOEMI DOMINGUEZ DO Apr 07, 2018 08:44
--- NOTE | 2018-04-07 09:04 | RAD ---
Indication: Fall with wrist pain. TECHNIQUE: 3 views of the right wrist COMPARISON: None FINDINGS/ impression: There is a complete oblique dorsally angulated fracture of the distal radial metaphysis with extension to the distal radioulnar joint. No extension to the radiocarpal joint seen. Wrist edema noted. Electronically signed by: Amadeo Reina DO (04/07/2018 9:00 AM) [facility]
[2018-04-07] MEDS ORDERED: IV RINGERS,LACTATED 1000ML 1,000 ML IV ONE (09:30)
[2018-04-07 10:03] LABS: BASO % 0 % (0-3); EOS % 0 % (0-3); HEMATOCRIT 42.9 % (36.0-47.0); HEMOGLOBIN 14.6 g/dL (12.0-15.5); LYMPH # 2.2 x10^3/uL (1.0-4.8); LYMPH % 17 % (24-48); MEAN CORPUSCULAR HEMOGLOBIN 32 pg (25-35); MEAN CORPUSCULAR HGB CONC 34 g/dL (31-37); MEAN CORPUSCULAR VOLUME 93 fL (79-100); MONO # 0.7 x10^3/uL (0.0-1.1); MONO % 6 % (0-9); NEUT # 9.8 x10^3uL (1.8-7.7); NEUT % 77 % (31-73); PLATELET COUNT 368 x10^3/uL (140-400); RED CELL DISTRIBUTION WIDTH 13.8 % (11.5-14.5); WHITE BLOOD COUNT 12.7 x10^3/uL (4.0-11.0)
[2018-04-07 10:08] LABS: CALCIUM 9.1 mg/dL (8.5-10.1); CREATININE 0.6 mg/dL (0.6-1.0); GFR 111.3
[2018-04-07 10:09] LABS: POTASSIUM 3.7 mmol/L (3.5-5.1)
[2018-04-07] MEDS ORDERED: KETOROLAC 30 MG/ML VIAL. IV ONE (10:30)
[2018-04-07] MEDS ORDERED: IV RINGERS,LACTATED 1000ML 1,000 ML IV SCH (12:19)
[2018-04-07] MEDS ORDERED: PROCHLORPERAZINE 10 MG/2 ML VIAL. IV PRN (12:30)
[2018-04-07] MEDS ORDERED: LIDOCAINE 1% PF 2 ML VIAL. ID PRN (12:30)
[2018-04-07] MEDS ORDERED: ONDANSETRON PF 4 MG/2 ML VIAL. IV PRN (12:30)
[2018-04-07] MEDS ORDERED: fentaNYL PF VIAL 100 MCG/2 ML VIAL IV PRN ×2 (12:30)
[2018-04-07] MEDS ORDERED: MORPHINE SULFATE 2 MG/ML VIAL. IV PRN (12:30)
[2018-04-07] MEDS ORDERED: HYDROmorphone 2 MG/ML VIAL IV PRN (12:30)
[2018-04-07] MEDS ORDERED: fentaNYL PF VIAL 100 MCG/2 ML VIAL ONE (12:54)
[2018-04-07] MEDS ORDERED: PROPOFOL 20 ML IV ONE (12:54)
[2018-04-07] MEDS ORDERED: LIDOCAINE 2% PF 5 ML VIAL. ONE (12:54)
[2018-04-07] MEDS ORDERED: LIDOCAINE 2% PF 2ML VIAL. ONE (13:08)
[2018-04-07] MEDS ORDERED: BUPIVAC MPF-EPI 0.5%-1:200000 30 ML VIAL. ONE (13:10)
[2018-04-07] MEDS ORDERED: BUPIVACAINE MPF 0.5% 30 ML VIAL. ONE ×2 (13:10→15:38)
[2018-04-07] MEDS ORDERED: MIDAZOLAM HCL/PF 2 MG/2 ML VIAL. ONE (13:53)
[2018-04-07] MEDS ORDERED: SCOPOLAMINE 1.5MG PATCH. TD ONE (13:54)
[2018-04-07] MEDS ORDERED: ONDANSETRON PF 4 MG/2 ML VIAL. ONE (14:32)
[2018-04-07] MEDS ORDERED: DEXAMETHASONE SOD PHOS 20 MG/5 ML VIAL. ONE (14:32)
[2018-04-07] MEDS ORDERED: SEVOFLURANE 61 TO 120 MINUTES. IH ONE (14:32)
--- NOTE | 2018-04-07 16:20 | CONS ---
DATE OF CONSULTATION: 04/07/2018 Emergency department consultation. This luke serve as a preoperative history and physical as well. REASON FOR CONSULTATION: Right dominant distal radius fracture. REQUESTING PHYSICIAN: Dr. Uriah Mcmanus. HISTORY OF PRESENT ILLNESS: The patient is a 37-year-old female who fell last night on outstretched bilateral wrists. She had a sudden onset of pain, deformity of the right wrist. Denies any injury to the left wrist. No loss of consciousness. No visual changes, headache, neck or back pain. PAST MEDICAL HISTORY: Significant for personality disorder, gastritis, posttraumatic stress disorder, anxiety, bipolar, depression. PAST SURGICAL HISTORY: Dental surgery where she had her teeth removed and has dentures. She also had a tubal ligation. ALLERGIES: She has no known drug allergies. MEDICATIONS: List is reviewed. 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 She has used marijuana in the past. No current alcohol use. She does smoke tobacco as well. REVIEW OF SYSTEMS: Notes that she really prefers not to take much in the way of pain medication. She said it had on a couple of occasions made her nauseous before, particularly after dental surgery. She said Phenergan had worked reasonably well for her in the meantime, but she tends to avoid pain medications. She said the Toradol that she received in the Emergency Department is working very well. She is right hand dominant. Nothing to eat or drink since last night and denies any current constitutional symptoms. No chest pain, shortness of breath, head injury, visual changes, headache, change in bowel or bladder habits, neck or back pain, radiating pain in the extremities, focal weakness, numbness or tingling. PHYSICAL EXAMINATION: GENERAL: A pleasant, cooperative female, alert and oriented, no acute distress. VITAL SIGNS: Temperature 98.1, pulse 90, respirations 18, blood pressure 118/79, 98% saturation on room air. HEENT: Atraumatic, normocephalic. HEART: Regular rate and rhythm. LUNGS: Clear to auscultation bilaterally. ABDOMEN: Benign. EXTREMITIES: Examination of the right wrist reveals obvious deformity with only moderate swelling due to the proximity of the injury. She has pain on palpation over the distal radius, there is obvious deformity, minimal range of motion. She can flex and extend her fingers; however, no pronation or supination is possible to do pain. Sensation is intact throughout the sensory distribution of the hand, radial, median, and ulnar nerve. She has normal examination of the contralateral wrist, bilateral elbows and shoulders. X-rays show a displaced right distal radius fracture with intra-articular extension. IMPRESSION: Displaced right dominant distal radius fracture. TREATMENT PLAN: I talked to her about treatment options and due to her orientation with a displaced intra-articular fragment dorsal ulnarly on the wrist as well as some additional intra-articular extension and the degree of displacement of metaphysis, I recommended operative evaluation and treatment with distal locking plate and screw fixation. I described to her the possibility of infection, nerve or blood vessel damage, delayed or nonhealing, medical or other anesthetic complications among others, the rationale for operative treatment as to align the fracture anatomically as possible and hold it there as such that it can heal to minimize stiffness, limitations or premature degenerative change among other problems. She is aware that even under the best of circumstances that she could have some stiffness, pain, limitations as well. All her questions were answered. She wishes to proceed with surgical evaluation and treatment, which will occur today pending Operating Room availability. MUNA RODRIGUEZ MD DR: HARJINDER/pauline JOB#: [id number] / [id number]
[2018-04-07 16:46] VITALS: BP 124/79
--- NOTE | 2018-04-07 17:02 | DISCH ---
DISCHARGE INSTRUCTIONS Condition on Discharge Condition on Discharge: Stable Activity After Discharge Activity Instructions for Disc: Other, see below (fine motor use right hand only may grasp silverware right type in a limited fashion no hard grasping or lifting) Diet after Discharge Diet after Discharge: Regular Wound Incision Care Wound/Incision Care: Ice to area for comfort, Keep wound elevated, Do not change dressing Contacting the DRNisha after DC Call your doctor for: Concerns you may have Follow-Up Follow up with: Justine approximately 10 days MUNA RODRIGUEZ MD Apr 07, 2018 17:02
[2018-04-07] MEDS ORDERED: HYDR-3165 PO (17:04)
--- NOTE | 2018-04-07 17:40 | PDOC4 ---
Operative Note Operative Note Date of surgery: 04/07/2018 Preoperative diagnosis: Displaced intra-articular right distal radius fracture Postoperative diagnosis: Same Operative procedure: Operative reduction internal fixation 2 part intra- articular right distal radius fracture Surgeon: Justine Anesthesia: Gen. plus scalene block Estimated blood loss: 5 mL Complications: None Tourniquet time: Approximately 1 hour 5 minutes Operative indications: Patient is a 37-year-old female with a fall on an outstretched right dominant hand last night on x-ray shows a displaced volar Mojica's fracture with intra-articular extension. I had gone over with her the rationale for operative treatment to anatomically align and minimize chance of degenerative change or weakness due to malposition. We talked about the possibility of infection nerve or blood vessel damage medical or other anesthetic complications nonhealing among others all her questions were answered she wishes to proceed with surgical evaluation and treatment. Operative text: Patient was identified procedure verified patient placed in the supine position on the operating table. After adequate amounts of general anesthesia was administered the right upper extremity was prepped and draped in standard sterile fashion with a up her arm tourniquet. After timeout was performed patient procedure identified and verified right arm was exsanguinated by Esmarch bandage tourniquet inflated to 250 mmHg a standard Ivan approach was carried out to the distal radius with subperiosteal dissection and anatomic reduction carried out under fluoroscopic guidance particularly eliminating the rotation in the metaphyseal portion with anatomic alignment at the joint surface. A simmered DVR small standard length plate was selected and was fixed along the shaft to allow establishment of the rotational aspect of the distal fragment which was very unstable and otherwise noted to lose reduction. Distal fixation was therefore carried out with a pointed reduction forcep holding reduction distally and locking screws were placed in the distal row and all but the most ulnar proximal row locking screws were placed and the locking pin was used in this area to avoid any potential compromise of the distal radial ulnar joint. Hardware position was checked under multiple fluoroscopic views and found to have near anatomic reduction at the joint surface and fracture site thorough irrigation carried out normal saline solution subcutaneous closure with buried Vicryl suture skin closure with subcuticular Monocryl Steri-Strips and Mastisol were applied followed by a well-padded Ortho-Glass volar splint fingers were noted be warm pink following deflation of tourniquet after total tourniquet time approximately an hour and 5 minutes. She was returned recovery room in stable condition having tolerated procedure well. MUNA RODRIGUEZ MD Apr 07, 2018 17:40
== END 2018-04-07 17:18 | disposition home or self-care (01) ==
LOC: ER 08:35 → OPS 14:15
PROVIDERS: ATTEND Orthopaedic Surgery
DX: S52.571A Other intraarticular fracture of lower end of right radius, initial encounter for closed fracture (principal); F43.10 Post-traumatic stress disorder, unspecified; F31.9 Bipolar disorder, unspecified; F41.9 Anxiety disorder, unspecified; F17.210 Nicotine dependence, cigarettes, uncomplicated; K21.9 Gastro-esophageal reflux disease without esophagitis; Z79.899 Other long term (current) drug therapy; Z98.890 Other specified postprocedural states; Z98.51 Tubal ligation status; X50.0XXA Overexertion from strenuous movement or load, initial encounter; Y93.89 Activity, other specified; Y92.89 Other specified places as the place of occurrence of the external cause; Y99.8 Other external cause status
CPT/HCPCS: 25608; 36415; 73110; 76000; 80048; 84702; 85025; A7015; C1713; J0690; J1100; J1885; J2001; J2250; J2405; J2704; J3010; J3490; J7120; 76001

== ENCOUNTER → 2018-11-01 | Outpatient (CLI) | payer MEDICAID, OTHER ==
[~2018-11-01] VITALS: Ht 162.6 cm; Wt 67.6 kg
[~2018-11-01] MED LIST changes: +HYDR-3165 PO; +SINCALIDE 1.4 MCG in IV NORMAL SALINE 50ML 30 ML IV ONE
--- NOTE | 2018-11-01 07:35 | RAD ---
Indication:Nausea, vomiting postprandial. TECHNIQUE: Grayscale, color Doppler and spectral waveform is of the abdomen obtained. COMPARISON:None FINDINGS: Visualized pancreas within normal limits. Pancreatic tail not visualized due to overlying bowel gas. Main pancreatic duct is nondilated. IVC is patent. Liver measures 15 cm in longest dimension and is normal in size and echogenicity. Main portal vein is hepatopedal flow. No gallstones, pericholecystic fluid or gallbladder wall thickening. CBD measures 2 mm in diameter and is within normal limits. Right kidney measures 11 cm in length without hydronephrosis. IMPRESSION: No cholelithiasis. Electronically signed by: Amadeo Reina DO (11/01/2018 7:32 AM) [facility]
--- NOTE | 2018-11-01 11:19 | RAD ---
HEPATOBILIARY SCAN WITH EJECTION FRACTION 11/01/2018 11:15 AM History: Nausea and vomiting for multiple years. Symptoms worsening over time Procedure: Serial static images are obtained of the liver and biliary system in the frontal projection following IV administration of 5.0 mCi of Technetium 99m Choletec. After filling of the gallbladder, 1.4 mcg of sincalide were infused over 30 minutes and dynamic imaging continued over this period. The gallbladder ejection fraction was calculated. Findings: There is prompt hepatic clearance of tracer from the blood pool. There is homogeneous distribution throughout the liver. The gallbladder ejection fraction measures 78% (normal gallbladder EF is 35% or greater). IMPRESSION: 1. The cystic duct and common bile duct are patent. Negative for acute cholecystitis. 2. The gallbladder ejection fraction is within normal limits Electronically signed by: Johnny Washington MD (11/01/2018 11:16 AM) [id number]
== END | disposition home or self-care (01) ==
LOC: US 06:28
PROVIDERS: ATTEND Internal Medicine Gastroenterology
DX: R11.2 Nausea with vomiting, unspecified (principal)
CPT/HCPCS: 76705; 78227; A9537; J2805

== ENCOUNTER → 2018-11-14 | Outpatient (CLI) | payer OTHER ==
[~2018-11-14] MED LIST changes: -SINCALIDE 1.4 MCG in IV NORMAL SALINE 50ML 30 ML IV ONE
--- NOTE | 2018-11-14 13:52 | RAD ---
Gastric Emptying Study 11/14/2018 Indication: Nausea and vomiting, chronic Procedure: Anterior and posterior projection static images are obtained over the stomach following oral administration of 2 mCi of 99 M technetium sulfur colloid in a solid meal . Time points include an immediate baseline, and 1, 2, 3, and 4 hours post ingestion. Findings: There is progressive emptying of the stomach on sequential images. Percentage retention at... One hour is 45% (normal 34.8-91%). Two hours 20% (normal 2.7-60%). Three hours 7% (normal 0.5-28%). Four hours 0% (normal 0-10%). Impression: Normal 4 hour protocol gastric emptying study. Consensus Recommendations for Gastric Emptying Scintigraphy: A Joint Report of the [place] [employer] and the Society of Nuclear Medicine: J. Nucl. Med. Technol. June 2007 vol. 36 no. 1 44-54 Grading for severity of delayed GE based on the 4-h value: grade 1 (mild): 11?20% retention at 4 h grade 2 (moderate): 21?35% retention at 4 h grade 3 (severe): 36?50% retention at 4 h grade 4 (very severe): >50% retention at 4 h. Electronically signed by: Johnny Washington MD (11/14/2018 1:49 PM) [id number]
== END | disposition home or self-care (01) ==
LOC: NM 09:37
PROVIDERS: ATTEND Internal Medicine Gastroenterology
DX: R11.2 Nausea with vomiting, unspecified (principal)
CPT/HCPCS: 78264; A9541

== ENCOUNTER → 2019-02-18 | Outpatient (CLI) | payer OTHER ==
--- NOTE | 2019-02-18 10:02 | RAD ---
DATE: 02/18/2019. EXAM: DIGITAL SCREEN BILAT W/CAD. HISTORY: Routine mammographic screening. COMPARISON: This is the baseline study. This study was interpreted with the benefit of Computerized Aided Detection (CAD). FINDINGS: Breast Density: SCATTERED The breast parenchyma shows scattered fibroglandular densities. Breast parenchyma level B.. A suggested focus of architectural distortion superiorly and centrally on the left is likely from superimposition. A nodule laterally on the right is likely an intramammary lymph node. There is no suspicious finding on the right. BI-RADS CATEGORY: 0 INCOMPLETE: NEEDS ADDITIONAL IMAGING EVALUATION AND/OR PRIOR MAMMOGRAMS FOR COMPARISON.. RECOMMENDED FOLLOW-UP: ADD ADDITIONAL IMAGING. 1. Spot compression of an architectural distortion superiorly on the left. Sonography if necessary. PQRS compliance statement: Patient information was entered into a reminder system with a target due date (now) for the next mammogram. Mammography is a sensitive method for finding small breast cancers, but it does not detect them all and is not a substitute for careful clinical examination. A negative mammogram does not negate a clinically suspicious finding and should not result in delay in biopsying a clinically suspicious abnormality. "Our facility is accredited by the [employer] Mammography [employer]."
== END | disposition home or self-care (01) ==
LOC: MAMMO 08:25
PROVIDERS: ATTEND Family Medicine
DX: Z12.31 Encounter for screening mammogram for malignant neoplasm of breast (principal); N63.10 Unspecified lump in the right breast, unspecified quadrant
CPT/HCPCS: 77067

== ENCOUNTER → 2019-02-20 | Outpatient (CLI) | payer OTHER ==
--- NOTE | 2019-02-20 11:25 | RAD ---
DATE: 02/20/2019. EXAM: DIGITAL DIAGNOSTIC LT. HISTORY: Architectural distortion on mammographic screening. COMPARISON: 02/18/2019. This study was interpreted with the benefit of Computerized Aided Detection (CAD). FINDINGS: Breast Density: SCATTERED The breast parenchyma shows scattered fibroglandular densities. Breast parenchyma level B.. The suggested focus of architectural distortion resolves to a parenchymal density on additional images. There are no suspicious masses, microcalcifications or architectural distortion. BI-RADS CATEGORY: 2 BENIGN FINDING(S). RECOMMENDED FOLLOW-UP: 12M 12 MONTH FOLLOW-UP. PQRS compliance statement: Patient information was entered into a reminder system with a target due date 02/21/2020 for the next mammogram. Mammography is a sensitive method for finding small breast cancers, but it does not detect them all and is not a substitute for careful clinical examination. A negative mammogram does not negate a clinically suspicious finding and should not result in delay in biopsying a clinically suspicious abnormality. "Our facility is accredited by the [employer] Mammography [employer]."
== END | disposition home or self-care (01) ==
LOC: MAMMO 10:45
PROVIDERS: ATTEND Family Medicine
DX: R92.8 Other abnormal and inconclusive findings on diagnostic imaging of breast (principal)
CPT/HCPCS: 77065

== ENCOUNTER 2019-06-27 07:57 | Emergency (ER) | payer OTHER ==
[~2019-06-27] VITALS: Ht 162.6 cm; Wt 72.7 kg
[2019-06-27] MEDS ORDERED: IV NORMAL SALINE 1000ML BAG 1,000 ML IV SCH (08:09)
[2019-06-27] MEDS ORDERED: ONDANSETRON PF 4 MG/2 ML VIAL. IVP ONE (08:15)
[2019-06-27 08:28] LABS: BILIRUBIN,URINE NEGATIVE (NEG); CLARITY,URINE CLOUDY; COLOR,URINE YELLOW; NITRITE,URINE NEGATIVE (NEG); PROTEIN,URINE NEGATIVE (NEG-TRACE); UROBILINOGEN,URINE 0.2 mg/dL (0.2 mg/dL)
[2019-06-27 08:40] LABS: BASO # 0.1 x10^3/uL (0.0-0.2); BASO % 1 % (0-3); CALCIUM 9.2 mg/dL (8.5-10.1); CREATININE 0.8 mg/dL (0.6-1.0); EOS % 0 % (0-3); HEMATOCRIT 43.7 % (36.0-47.0); HEMOGLOBIN 14.9 g/dL (12.0-15.5); LYMPH # 2.3 x10^3/uL (1.0-4.8); LYMPH % 16 % (24-48); MEAN CORPUSCULAR HEMOGLOBIN 32 pg (25-35); MEAN CORPUSCULAR HGB CONC 34 g/dL (31-37); MEAN CORPUSCULAR VOLUME 94 fL (79-100); MONO # 0.7 x10^3/uL (0.0-1.1); MONO % 5 % (0-9); NEUT # 11.2 x10^3/uL (1.8-7.7); NEUT % 78 % (31-73); PLATELET COUNT 439 x10^3/uL (140-400); POTASSIUM 3.6 mmol/L (3.5-5.1); RED BLOOD COUNT 4.67 x10^6/uL (3.50-5.40); RED CELL DISTRIBUTION WIDTH 14.6 % (11.5-14.5); WHITE BLOOD COUNT 14.4 x10^3/uL (4.0-11.0)
--- NOTE | 2019-06-27 08:42 | PHYS DOC ---
Past Medical History Past Medical History: Anxiety, Bipolar, Depression, GERD, Other Additional Past Medical Histor: multipersonality disorder, gastritis; PTSD Past Surgical History: Tubal ligation, Other Additional Past Surgical Histo: Dental surgery Smoking Status: Current Every Day Smoker Additional Information: 1.5 PK/DAY Alcohol Use: None Drug Use: Marijuana Adult General Chief Complaint Chief Complaint: NAUSEA/VOMITING/DIARRHA HPI HPI Patient is a 39 year old female who presented to ER today for evaluation of nausea and vomiting for the last 2 days. Patient feels dehydrated, not able to keep anything down. Patient denies any pain. Patient has a history of nausea vomiting like this in the past, she has been evaluated by GI doctor, Dr. Hernandez, Last time she was seen by him was 6 months ago. Patient denies any fever. Patient denies any diarrhea, no chest pain, no trouble breathing. Patient is on Prilosec 40 mg daily at home already. Review of Systems Review of Systems Constitutional: Denies fever or chills [] Eyes: Denies change in visual acuity, redness, or eye pain [] HENT: Denies nasal congestion or sore throat [] Respiratory: Denies cough or shortness of breath [] Cardiovascular: No additional information not addressed in HPI [] GI: Positive for nausea, vomiting, NO bloody stools or diarrhea, NO ABDOMINAL PAIN. : Denies dysuria or hematuria [] Musculoskeletal: Denies back pain or joint pain [] Integument: Denies rash or skin lesions [] Neurologic: Denies headache, focal weakness or sensory changes [] Endocrine: Denies polyuria or polydipsia [] All other systems were reviewed and found to be within normal limits, except as documented in this note. Current Medications Current Medications Current Medications Medications (Trade) Dose Ordered Sig/Earnestine Start Time Stop Time Status Last Admin Dose Admin Diphenhydramine HCl (Benadryl) 25 mg 1X ONCE 06/27/19 11:00 06/27/19 11:01 DC 06/27/19 11:57 25 MG Famotidine (Pepcid Vial) 20 mg 1X ONCE 06/27/19 12:00 06/27/19 12:01 DC 06/27/19 11:58 20 MG Info (CONTRAST GIVEN -- Rx MONITORING) 1 each PRN DAILY PRN 06/27/19 09:15 06/29/19 09:14 Iohexol (Omnipaque 300 Mg/ml) 75 ml 1X ONCE 06/27/19 09:15 06/27/19 09:16 DC 06/27/19 09:15 75 ML Lorazepam (Ativan Inj) 1 mg 1X ONCE 06/27/19 11:00 06/27/19 11:01 DC 06/27/19 11:58 1 MG Magnesium Sulfate 50 ml @ 25 mls/hr 1X ONCE 06/27/19 09:00 06/27/19 10:59 DC 06/27/19 09:38 25 MLS/HR Metoclopramide HCl (Reglan Vial) 10 mg 1X ONCE 06/27/19 09:30 06/27/19 09:31 DC 06/27/19 09:38 10 MG Ondansetron HCl (Zofran) 8 mg 1X ONCE 06/27/19 08:15 06/27/19 08:16 DC 06/27/19 08:55 8 MG Sodium Chloride 1,000 ml @ 1,000 mls/hr Q1H 06/27/19 08:09 06/27/19 09:08 DC 06/27/19 08:55 1,000 MLS/HR Allergies Allergies Allergies Coded Allergies Type Severity Reaction Last Updated Verified No Known Drug Allergies 04/07/18 No Physical Exam Physical Exam Constitutional: Well developed, well nourished, no acute distress, non-toxic appearance. [] HENT: Normocephalic, atraumatic, bilateral external ears normal, oropharynx moist, no oral exudates, nose normal. [] Eyes: PERRLA, EOMI, conjunctiva normal, no discharge. [] Neck: Normal range of motion, no tenderness, supple, no stridor. [] Cardiovascular:Heart rate regular rhythm, no murmur [] Lungs & Thorax: Bilateral breath sounds clear to auscultation [] Abdomen: Bowel sounds normal, soft, no tenderness, no masses, no pulsatile masses. [] Skin: Warm, dry, no erythema, no rash. [] Back: No tenderness, no CVA tenderness. [] Extremities: No tenderness, no cyanosis, no clubbing, ROM intact, no edema. [] Neurologic: Alert and oriented X 3, normal motor function, normal sensory function, no focal deficits noted. [] Psychologic: Affect normal, judgement normal, mood normal. [] Current Patient Data Vital Signs Vital Signs Date Time Temp Pulse Resp B/P (MAP) Pulse Ox O2 Delivery O2 Flow Rate FiO2 06/27/19 08:18 98.0 81 20 161/87 (111) 99 Room Air 98.0 Lab Values Laboratory Tests Test 06/27/19 08:07 06/27/19 08:09 06/27/19 08:13 POC Urine HCG, Qualitative Hcg negative (Negative) Urine Collection Type Unknown Urine Color Yellow Urine Clarity Cloudy Urine pH 7.0 (<5.0-8.0) Urine Specific [place] 1.015 (1.000-1.030) Urine Protein Negative mg/dL (NEG-TRACE) Urine Glucose (UA) Negative mg/dL (NEG) Urine Ketones (Stick) Negative mg/dL (NEG) Urine Blood Negative (NEG) Urine Nitrite Negative (NEG) Urine Bilirubin Negative (NEG) Urine Urobilinogen Dipstick 0.2 mg/dL (0.2 mg/dL) Urine Leukocyte Esterase Small (NEG) Urine RBC 0 /HPF (0-2) Urine WBC 1-4 /HPF (0-4) Urine Squamous Epithelial Cells Mod /LPF Urine Bacteria Few /HPF (0-FEW) Urine Mucus Marked /LPF White Blood Count 14.4 x10^3/uL (4.0-11.0) H Red Blood Count 4.67 x10^6/uL (3.50-5.40) Hemoglobin 14.9 g/dL (12.0-15.5) Hematocrit 43.7 % (36.0-47.0) Mean Corpuscular Volume 94 fL (79-100) Mean Corpuscular Hemoglobin 32 pg (25-35) Mean Corpuscular Hemoglobin Concent 34 g/dL (31-37) Red Cell Distribution Width 14.6 % (11.5-14.5) H Platelet Count 439 x10^3/uL (140-400) H Neutrophils (%) (Auto) 78 % (31-73) H Lymphocytes (%) (Auto) 16 % (24-48) L Monocytes (%) (Auto) 5 % (0-9) Eosinophils (%) (Auto) 0 % (0-3) Basophils (%) (Auto) 1 % (0-3) Neutrophils # (Auto) 11.2 x10^3/uL (1.8-7.7) H Lymphocytes # (Auto) 2.3 x10^3/uL (1.0-4.8) Monocytes # (Auto) 0.7 x10^3/uL (0.0-1.1) Eosinophils # (Auto) 0.0 x10^3/uL (0.0-0.7) Basophils # (Auto) 0.1 x10^3/uL (0.0-0.2) Sodium Level 143 mmol/L (136-145) Potassium Level 3.6 mmol/L (3.5-5.1) Chloride Level 104 mmol/L (98-107) Carbon Dioxide Level 26 mmol/L (21-32) Anion Gap 13 (6-14) Blood Urea Nitrogen 9 mg/dL (7-20) Creatinine 0.8 mg/dL (0.6-1.0) Estimated GFR (Cockcroft-Gault) 79.0 BUN/Creatinine Ratio 11 (6-20) Glucose Level 113 mg/dL (70-99) H Calcium Level 9.2 mg/dL (8.5-10.1) Magnesium Level 1.6 mg/dL (1.8-2.4) L Total Bilirubin 0.3 mg/dL (0.2-1.0) Aspartate Amino Transferase (AST) 16 U/L (15-37) Alanine Aminotransferase (ALT) 18 U/L (14-59) Alkaline Phosphatase 103 U/L (46-116) Total Protein 8.1 g/dL (6.4-8.2) Albumin 4.0 g/dL (3.4-5.0) Albumin/Globulin Ratio 1.0 (1.0-1.7) Lipase 225 U/L (73-393) Laboratory Tests 06/27/19 08:13 Laboratory Tests 06/27/19 08:13 EKG EKG [] Radiology/Procedures Radiology/Procedures [][facility] [address] [place] [address] IMAGING REPORT Signed PATIENT: ALEXA CLEMENTS ACCOUNT: [id number] : 1980 LOCATION: ER AGE: 39 SEX: F EXAM STATUS: REG ER ORD. PHYSICIAN: DAYSI THORNTON DO REASON: abdominal pain, nausea, vomiting PROCEDURE: CT ABD PELV W/ IV CONTRST ONLY Examination: CT ABD PELV W/ IV CONTRST ONLY History: Abdominal pain, nausea and vomiting Comparison/Correlation: None Findings: Axial images of the abdomen and pelvis were obtained following IV contrast. Sagittal and coronal reformatted images were provided. Linear atelectasis at the lung bases is noted. There is a 0.3 cm diameter noncalcified right pleural based nodular density nodule present on axial image 5 of series 2 and is benign in appearance with no further follow-up required. Liver, spleen, and adrenal glands are normal. Small hiatal hernia is present. Gallbladder is unremarkable. Appendix is normal. No bowel obstruction or extraluminal gas. Segmental thickening of the proximal colon is present which probably represents contraction. Submucosal fat is present in the colon. No surrounding stranding. Small umbilical hernia contains omental fat. Significant bilateral renal calyceal calculus involvement is present at all levels. Numerous calculi are present and is measured less than 0.4 cm diameter. Left renal cysts are present. No hydronephrosis or hydroureter. Urinary bladder is unremarkable. Bony structures are unremarkable. Impression: No obstruction or extraluminal gas. Extensive bilateral renal calculus involvement. No collecting system obstruction. Small umbilical hernia is present. Small hiatal hernia. Submucosal fat. Correlate with previous histories of inflammatory processes. No active inflammatory process identified. PQRS Compliance Statement: One or more of the following individualized dose reduction techniques were utilized for this examination: 1. Automated exposure control 2. Adjustment of the mA and/or kV according to patient size 3. Use of iterative reconstruction technique Electronically signed by: Juan C Singh MD (06/27/2019 10:26 AM) [id number] DICTATED and SIGNED BY: JUAN C SINGH MD DATE: 06/27/19 1026 Course & Med Decision Making Course & Med Decision Making Pertinent Labs and Imaging studies reviewed. (See chart for details) Patient feels much better, would like to go home and follow-up with her GI doctor Idalmis Disclaimer Idalmis Disclaimer This electronic medical record was generated, in whole or in part, using a voice recognition dictation system. Departure Departure Impression: Primary Impression: Abdominal pain Additional Impression: Acute gastritis Disposition: 01 HOME, SELF-CARE Condition: STABLE Referrals: CARLY GARCIA MD (PCP) follow up with your family doctor and GI doctor next week. Patient Instructions: Abdominal Pain, Gastritis, Adult Additional Instructions: Thank you for visiting our Emergency Department. We appreciate you trusting us with your care. If any additional problems come up don't hesitate to return to visit us. Please follow up with your primary care provider so they can plan additional care if needed and know about the problem that you had. If symptoms worsen come back to the Emergency Department. Any concerning symptoms that start such as chest pain, shortness of air, weakness or numbness on one side of the body, running high fevers or any other concerning symptoms return to the ER. Scripts Ondansetron Hcl (ZOFRAN) 4 Mg Tablet 1 TAB PO Q6HRS, #20 TAB Prov: DYASI THORNTON DO 06/27/19 Sucralfate (CARAFATE) 1 Gm Tablet 1 TAB PO QID for 21 Days, #84 TAB 0 Refills Prov: DAYSI THORNTON DO 06/27/19 Famotidine (PEPCID) 20 Mg Tablet 20 MG PO HS for 30 Days, #30 TAB Prov: DAYSI THORNTON DO 06/27/19 Problem Qualifiers DAYSI THORNTON DO Jun 27, 2019 08:42
[2019-06-27 08:44] LABS: RBC,URINE 0 /HPF (0-2)
[2019-06-27 08:45] LABS: MAGNESIUM 1.6 mg/dL (1.8-2.4); TOTAL BILIRUBIN 0.3 mg/dL (0.2-1.0); TOTAL PROTEIN 8.1 g/dL (6.4-8.2)
[2019-06-27 08:45] LABS: BACTERIA,URINE FEW /HPF (0-FEW); SQUAMOUS EPITHELIAL CELL,UR MOD /LPF
[2019-06-27] MEDS ORDERED: MAGNESIUM SULFATE 2GM 50 ML IV ONE (09:00)
[2019-06-27] MEDS ORDERED: CONTRAST GIVEN. MC PRN (09:15)
[2019-06-27] MEDS ORDERED: IOHEXOL 300 MG/ML 100ML VIAL. IV ONE (09:15)
[2019-06-27] MEDS ORDERED: METOCLOPRAMIDE HCL 10 MG/2 ML VIAL. IVP ONE (09:30)
[2019-06-27 09:37] VITALS: BP 144/84
--- NOTE | 2019-06-27 10:29 | RAD ---
Examination: CT ABD PELV W/ IV CONTRST ONLY History: Abdominal pain, nausea and vomiting Comparison/Correlation: None Findings: Axial images of the abdomen and pelvis were obtained following IV contrast. Sagittal and coronal reformatted images were provided. Linear atelectasis at the lung bases is noted. There is a 0.3 cm diameter noncalcified right pleural based nodular density nodule present on axial image 5 of series 2 and is benign in appearance with no further follow-up required. Liver, spleen, and adrenal glands are normal. Small hiatal hernia is present. Gallbladder is unremarkable. Appendix is normal. No bowel obstruction or extraluminal gas. Segmental thickening of the proximal colon is present which probably represents contraction. Submucosal fat is present in the colon. No surrounding stranding. Small umbilical hernia contains omental fat. Significant bilateral renal calyceal calculus involvement is present at all levels. Numerous calculi are present and is measured less than 0.4 cm diameter. Left renal cysts are present. No hydronephrosis or hydroureter. Urinary bladder is unremarkable. Bony structures are unremarkable. Impression: No obstruction or extraluminal gas. Extensive bilateral renal calculus involvement. No collecting system obstruction. Small umbilical hernia is present. Small hiatal hernia. Submucosal fat. Correlate with previous histories of inflammatory processes. No active inflammatory process identified. PQRS Compliance Statement: One or more of the following individualized dose reduction techniques were utilized for this examination: 1. Automated exposure control 2. Adjustment of the mA and/or kV according to patient size 3. Use of iterative reconstruction technique Electronically signed by: Juan C Dorado MD (06/27/2019 10:26 AM) [id number]
[2019-06-27] MEDS ORDERED: diphenhydrAMINE 50 MG/ML VIAL IVP ONE (11:00)
[2019-06-27] MEDS ORDERED: FAMOTIDINE 20 MG/2 ML VIAL IVP ONE (12:00)
[2019-06-27] MEDS ORDERED: ONDA4TAB7 PO (12:37)
[2019-06-27] MEDS ORDERED: SUCR1TAB35 PO (12:37)
[2019-06-27] MEDS ORDERED: FAMO-63 PO (12:37)
== END 2019-06-27 12:52 | disposition home or self-care (01) ==
LOC: ER 07:57
DX: K29.00 Acute gastritis without bleeding (principal); K21.9 Gastro-esophageal reflux disease without esophagitis; F31.9 Bipolar disorder, unspecified; F17.200 Nicotine dependence, unspecified, uncomplicated; Z98.51 Tubal ligation status
CPT/HCPCS: 36415; 74177; 80053; 81001; 81025; 83690; 83735; 85025; 87086; 96361; 96365; 96366; 96375; 99285; J1200; J2060; J2405; J2765; J3475; J3490; J7030; Q9967; 87186

== ENCOUNTER 2019-10-06 07:04 | Emergency (ER) | payer OTHER ==
[~2019-10-06] VITALS: Ht 162.6 cm; Wt 71.3 kg
[~2019-10-06 07:04] MED LIST changes: +FAMO-63 PO; +SUCR1TAB35 PO
[2019-10-06] MEDS ORDERED: ONDANSETRON PF 4 MG/2 ML VIAL. IV ONE (07:15)
[2019-10-06] MEDS ORDERED: IV NORMAL SALINE 1000ML BAG 1,000 ML IV ONE (07:15)
[2019-10-06] MEDS ORDERED: FAMOTIDINE 20 MG/2 ML VIAL IVP ONE (07:15)
[2019-10-06 07:55] LABS: BASO # 0.1 x10^3/uL (0.0-0.2); BASO % 1 % (0-3); EOS # 0.1 x10^3/uL (0.0-0.7); EOS % 1 % (0-3); HEMATOCRIT 41.6 % (36.0-47.0); HEMOGLOBIN 14.4 g/dL (12.0-15.5); LYMPH # 2.1 x10^3/uL (1.0-4.8); LYMPH % 15 % (24-48); MEAN CORPUSCULAR HEMOGLOBIN 32 pg (25-35); MEAN CORPUSCULAR HGB CONC 35 g/dL (31-37); MEAN CORPUSCULAR VOLUME 91 fL (79-100); MONO # 0.9 x10^3/uL (0.0-1.1); MONO % 7 % (0-9); NEUT # 10.6 x10^3/uL (1.8-7.7); NEUT % 77 % (31-73); PLATELET COUNT 410 x10^3/uL (140-400); RED BLOOD COUNT 4.59 x10^6/uL (3.50-5.40); WHITE BLOOD COUNT 13.8 x10^3/uL (4.0-11.0)
[2019-10-06 07:56] LABS: BILIRUBIN,URINE NEGATIVE (NEG); CLARITY,URINE CLEAR; COLOR,URINE YELLOW; NITRITE,URINE NEGATIVE (NEG); PH,URINE 8.5 (<5.0-8.0); PROTEIN,URINE NEGATIVE (NEG-TRACE); UROBILINOGEN,URINE 0.2 mg/dL (0.2 mg/dL)
[2019-10-06 08:02] LABS: CALCIUM 9.8 mg/dL (8.5-10.1); CREATININE 0.9 mg/dL (0.6-1.0); POTASSIUM 3.4 mmol/L (3.5-5.1)
[2019-10-06 08:05] LABS: ALBUMIN 3.7 g/dL (3.4-5.0); ALBUMIN/GLOBULIN RATIO 0.9 (1.0-1.7); MAGNESIUM 1.3 mg/dL (1.8-2.4); TOTAL BILIRUBIN 0.4 mg/dL (0.2-1.0); TOTAL PROTEIN 7.6 g/dL (6.4-8.2)
[2019-10-06 08:15] VITALS: BP 138/79
[2019-10-06 08:20] LABS: BACTERIA,URINE FEW /HPF (0-FEW); RBC,URINE 0 /HPF (0-2); SQUAMOUS EPITHELIAL CELL,UR MANY /LPF
[2019-10-06] MEDS ORDERED: ONDA4TAB12 PO (08:23)
[2019-10-06] MEDS ORDERED: OMEP40CA45 PO (08:23)
--- NOTE | 2019-10-06 08:23 | PHYS DOC ---
Past Medical History Past Medical History: Anxiety, Bipolar, Depression, GERD, Other Additional Past Medical Histor: multipersonality disorder, gastritis; PTSD Past Surgical History: Tubal ligation, Other Additional Past Surgical Histo: Dental surgery Smoking Status: Current Every Day Smoker Alcohol Use: Heavy Additional Information: PT STATES SHE DRINKS 1/2 PINT DAILY Drug Use: Marijuana Social History Narrative: PATIENT STATES SHE SMOKES MARIJUANA DAILY General Adult EDM: Chief Complaint: NAUSEA/VOMITING/DIARRHA HPI: HPI: Patient is a 39-year-old female who presents with several day history of nausea vomiting and diarrhea. She states she is out of her prescribed proton pump inhibitor. She states she has been dealing with these kind of issues for years now. She denies any fever chills or sweats. She does note that she has had some blood in her emesis but not a lot. She denies any melena. She denies any fever chills or sweats. She denies any dysuria or gross hematuria. [] Review of Systems: Review of Systems: Constitutional: Denies fever or chills. [] Eyes: Denies change in visual acuity. [] HENT: Denies nasal congestion or sore throat. [] Respiratory: Denies cough or shortness of breath. [] Cardiovascular: Denies chest pain or edema. [] GI: Per HPI. [] : Denies dysuria. [] Musculoskeletal: Denies back pain or joint pain. [] Integument: Denies rash. [] Neurologic: Denies headache, focal weakness or sensory changes. [] Endocrine: Denies polyuria or polydipsia. [] Lymphatic: Denies swollen glands. [] Psychiatric: Denies depression or anxiety. [] Heart Score: Risk Factors: Risk Factors: DM, Current or recent (<one month) smoker, HTN, HLP, family history of CAD, obesity. Risk Scores: Score 0 - 3: 2.5% MACE over next 6 weeks - Discharge Home Score 4 - 6: 20.3% MACE over next 6 weeks - Admit for Clinical Observation Score 7 - 10: 72.7% MACE over next 6 weeks - Early Invasive Strategies Current Medications: Current Medications Medications (Trade) Dose Ordered Sig/Earnestine Start Time Stop Time Status Last Admin Dose Admin Famotidine (Pepcid Vial) 20 mg 1X ONCE 10/06/19 07:15 10/06/19 07:16 DC 10/06/19 07:49 20 MG Ondansetron HCl (Zofran) 8 mg 1X ONCE 10/06/19 07:15 10/06/19 07:16 DC 10/06/19 07:49 8 MG Sodium Chloride 1,000 ml @ 1,000 mls/hr 1X ONCE 10/06/19 07:15 10/06/19 08:14 DC 10/06/19 07:50 1,000 MLS/HR Allergies: Allergies: Allergies Coded Allergies Type Severity Reaction Last Updated Verified No Known Drug Allergies 04/07/18 No Physical Exam: PE: Constitutional: Well developed, well nourished, mild distress appears acutely ill [] HENT: Normocephalic, atraumatic, bilateral external ears normal, oropharynx moist, no oral exudates, nose normal. [] Eyes: PERRLA, EOMI, conjunctiva normal, no discharge. [] Neck: Normal range of motion, no tenderness, supple, no stridor. [] Cardiovascular:Heart rate regular rhythm, no murmur [] Lungs & Thorax: Bilateral breath sounds clear to auscultation [] Abdomen: Bowel sounds normal, soft, no tenderness, no masses, no pulsatile masses. [] Skin: Warm, dry, no erythema, no rash. [] Back: No tenderness, no CVA tenderness. [] Extremities: No tenderness, no cyanosis, no clubbing, ROM intact, no edema. [] Neurologic: Alert and oriented X 3, normal motor function, normal sensory function, no focal deficits noted. [] Psychologic: Anxious [] Current Patient Data: Labs: Laboratory Tests Test 10/06/19 07:40 White Blood Count 13.8 x10^3/uL (4.0-11.0) H Red Blood Count 4.59 x10^6/uL (3.50-5.40) Hemoglobin 14.4 g/dL (12.0-15.5) Hematocrit 41.6 % (36.0-47.0) Mean Corpuscular Volume 91 fL (79-100) Mean Corpuscular Hemoglobin 32 pg (25-35) Mean Corpuscular Hemoglobin Concent 35 g/dL (31-37) Red Cell Distribution Width 17.0 % (11.5-14.5) H Platelet Count 410 x10^3/uL (140-400) H Neutrophils (%) (Auto) 77 % (31-73) H Lymphocytes (%) (Auto) 15 % (24-48) L Monocytes (%) (Auto) 7 % (0-9) Eosinophils (%) (Auto) 1 % (0-3) Basophils (%) (Auto) 1 % (0-3) Neutrophils # (Auto) 10.6 x10^3/uL (1.8-7.7) H Lymphocytes # (Auto) 2.1 x10^3/uL (1.0-4.8) Monocytes # (Auto) 0.9 x10^3/uL (0.0-1.1) Eosinophils # (Auto) 0.1 x10^3/uL (0.0-0.7) Basophils # (Auto) 0.1 x10^3/uL (0.0-0.2) Sodium Level 141 mmol/L (136-145) Potassium Level 3.4 mmol/L (3.5-5.1) L Chloride Level 100 mmol/L (98-107) Carbon Dioxide Level 31 mmol/L (21-32) Anion Gap 10 (6-14) Blood Urea Nitrogen 7 mg/dL (7-20) Creatinine 0.9 mg/dL (0.6-1.0) Estimated GFR (Cockcroft-Gault) 69.0 BUN/Creatinine Ratio 8 (6-20) Glucose Level 121 mg/dL (70-99) H Calcium Level 9.8 mg/dL (8.5-10.1) Magnesium Level 1.3 mg/dL (1.8-2.4) L Total Bilirubin 0.4 mg/dL (0.2-1.0) Aspartate Amino Transferase (AST) 28 U/L (15-37) Alanine Aminotransferase (ALT) 24 U/L (14-59) Alkaline Phosphatase 102 U/L (46-116) Total Protein 7.6 g/dL (6.4-8.2) Albumin 3.7 g/dL (3.4-5.0) Albumin/Globulin Ratio 0.9 (1.0-1.7) L Lipase 120 U/L (73-393) Ethyl Alcohol Level < 10 mg/dL (0-10) Laboratory Tests 10/06/19 07:40 Laboratory Tests 10/06/19 07:40 Vital Signs: Vital Signs Date Time Temp Pulse Resp B/P (MAP) Pulse Ox O2 Delivery O2 Flow Rate FiO2 10/06/19 07:15 97.8 70 22 145/86 (105) 100 Room Air 97.8 EKG: EKG: [] Radiology/Procedures: Radiology/Procedures: [] Course & Med Decision Making: Course & Med Decision Making Pertinent Labs and Imaging studies reviewed. (See chart for details) ED course: Evaluation reveals a 39-year-old female with nausea and vomiting. She was given IV fluids, Zofran and Pepcid during her stay in the department which did help alleviate her symptoms. I will provide her with some Zofran ODT as well as omeprazole 40 mg. [] Dragon Disclaimer: Dragon Disclaimer: This electronic medical record was generated, in whole or in part, using a voice recognition dictation system. Departure Departure Impression: Primary Impression: Nausea & vomiting Qualified Codes: R11.2 - Nausea with vomiting, unspecified Additional Impression: Gastritis Qualified Codes: K29.50 - Unspecified chronic gastritis without bleeding Disposition: 01 HOME, SELF-CARE Condition: IMPROVED Referrals: CARLY GARCIA MD (PCP) Patient Instructions: Gastritis, Adult Additional Instructions: Return to the emergency department with any new or concerning symptoms Scripts Omeprazole (OMEPRAZOLE) 40 Mg Capsule.dr 1 CAP PO DAILY for gastritis, #90 CAP 3 Refills Prov: ABBIE IRWIN DO 10/06/19 Ondansetron (ONDANSETRON ODT) 4 Mg Tab.rapdis 1 TAB PO PRN Q6-8HRS for VOMITING, #30 TAB Prov: ABBIE IRWIN DO 10/06/19 Justicifation of Admission Dx: Justifications for Admission: Justification of Admission Dx: No ABBIE IRWIN DO Oct 06, 2019 08:23
== END 2019-10-06 08:56 | disposition home or self-care (01) ==
LOC: ER 07:04
DX: K29.50 Unspecified chronic gastritis without bleeding (principal); R11.2 Nausea with vomiting, unspecified; F41.9 Anxiety disorder, unspecified; F32.9 Major depressive disorder, single episode, unspecified; F17.200 Nicotine dependence, unspecified, uncomplicated; F10.10 Alcohol abuse, uncomplicated; F12.90 Cannabis use, unspecified, uncomplicated; Z98.51 Tubal ligation status; Z98.890 Other specified postprocedural states; Z79.899 Other long term (current) drug therapy
CPT/HCPCS: 36415; 80053; 81001; 83690; 83735; 85025; 87086; 96361; 96374; 96375; 99284; G0480; J2405; J3490; J7030

== ENCOUNTER 2019-11-10 21:19 | Emergency (ER) | payer OTHER ==
[~2019-11-10] VITALS: Ht 167.6 cm; Wt 67.0 kg
[~2019-11-10 21:19] MED LIST changes: +OMEP40CA45 PO; +ONDA4TAB12 PO
[2019-11-10 22:04] LABS: BILIRUBIN,URINE NEGATIVE (NEG); CLARITY,URINE CLEAR; COLOR,URINE YELLOW; NITRITE,URINE POSITIVE (NEG); PROTEIN,URINE NEGATIVE (NEG-TRACE)
[2019-11-10 22:13] LABS: SQUAMOUS EPITHELIAL CELL,UR MOD /LPF
[2019-11-10 22:14] LABS: BACTERIA,URINE MANY /HPF (0-FEW); RBC,URINE >40 /HPF (0-2); WBC,URINE 20-40 /HPF (0-4)
--- NOTE | 2019-11-10 22:21 | RAD ---
Exam: Abdomen one view INDICATION: Right lower quadrant pain TECHNIQUE: Frontal view the abdomen Comparisons: None FINDINGS: Air and stool noted throughout the colon fall the rectum nonobstructive bowel gas pattern. No suspicious masses or calcifications. Visualized osseous structures are unremarkable. IMPRESSION: Nonobstructive bowel gas pattern. Electronically signed by: Elizabeth Allen MD (11/10/2019 10:18 PM) [id number]
[2019-11-10 22:27] LABS: BASO # 0.1 x10^3/uL (0.0-0.2); BASO % 1 % (0-3); EOS % 0 % (0-3); HEMATOCRIT 33.7 % (36.0-47.0); HEMOGLOBIN 11.9 g/dL (12.0-15.5); LYMPH # 1.2 x10^3/uL (1.0-4.8); LYMPH % 9 % (24-48); MEAN CORPUSCULAR HEMOGLOBIN 32 pg (25-35); MEAN CORPUSCULAR HGB CONC 35 g/dL (31-37); MEAN CORPUSCULAR VOLUME 91 fL (79-100); MONO # 1.6 x10^3/uL (0.0-1.1); MONO % 11 % (0-9); NEUT # 11.5 x10^3/uL (1.8-7.7); NEUT % 80 % (31-73); PLATELET COUNT 318 x10^3/uL (140-400); RED BLOOD COUNT 3.69 x10^6/uL (3.50-5.40); RED CELL DISTRIBUTION WIDTH 17.3 % (11.5-14.5); WHITE BLOOD COUNT 14.4 x10^3/uL (4.0-11.0)
[2019-11-10 22:41] LABS: ALBUMIN 3.1 g/dL (3.4-5.0); ALBUMIN/GLOBULIN RATIO 0.9 (1.0-1.7); CALCIUM 8.2 mg/dL (8.5-10.1); CREATININE 1.2 mg/dL (0.6-1.0); GFR 49.5; TOTAL BILIRUBIN 0.4 mg/dL (0.2-1.0); TOTAL PROTEIN 6.7 g/dL (6.4-8.2)
[2019-11-10] MEDS ORDERED: IOHEXOL 300 MG/ML 100ML VIAL. IV ONE (23:30)
[2019-11-10] MEDS ORDERED: CONTRAST GIVEN. MC PRN (23:30)
--- NOTE | 2019-11-10 23:45 | RAD ---
Exam: CT of abdomen and pelvis with contrast INDICATION: Right lower quadrant pain TECHNIQUE: Sequential axial images through the abdomen and pelvis obtained following the administration of 60 mL of Omni 300 IV contrast. Sagittal and coronal reformatted images were reconstructed from the axial data and reviewed. Comparisons: 06/27/2019 FINDINGS: Heart size is normal. No pericardial effusion. Strandy opacities at dependent portion lungs likely representing atelectasis. No pleural effusion. Liver, spleen, pancreas, gallbladder and adrenals are unremarkable. No perinephric inflammation or hydronephrosis. Numerous bilateral nonobstructing renal calculi. No ureteral calculi are identified. There is a vague area of hypoenhancement noted at the upper pole of the left kidney which is not definitively present on the prior study from June. There is mild adjacent perinephric stranding. Bladder is distended and appears thin-walled. Uterus is not enlarged. No abnormal adnexal mass. Large and small bowel are unremarkable. Appendix is normal. No free intra-abdominal air or fluid. No obstruction. Abdominal aorta has a normal course and caliber. Abdominal vasculature is patent. No enlarged intra-abdominal lymph nodes are identified. No suspicious osseous lesions or acute fractures. IMPRESSION: 1. Vague area of hypoenhancement at the upper pole of the left kidney with mild adjacent perinephric fat stranding. Findings could relate to pyelonephritis. Correlate with urinalysis. Additionally, short-term follow-up imaging posttreatment with either renal protocol CT or MRI is recommended to ensure no underlying lesion. 2. Normal appendix. 3. Bilateral nonobstructing renal calculi. No ureteral calculi or evidence for obstructive uropathy. Exposure: One or more of the following in the visualized dose reduction techniques were utilized for this examination: 1. Automated exposure control 2. Adjustment of the MA and/or KV according to patient size 3. Use of iterative of reconstructive technique Electronically signed by: Elizabeth Allen MD (11/10/2019 11:42 PM) [id number]
[2019-11-11] MEDS ORDERED: KETOROLAC 30 MG/ML VIAL. IVP ONE (00:15)
[2019-11-11] MEDS ORDERED: cefTRIAXone IV Push 1 GM VIAL. IVP ONE (00:15)
[2019-11-11] MEDS ORDERED: SULF1TAB24 PO (00:22)
--- NOTE | 2019-11-11 00:23 | PHYS DOC ---
Past Medical History Past Medical History: Anxiety, Bipolar, Depression, GERD, Other Additional Past Medical Histor: multipersonality disorder, gastritis; PTSD Past Surgical History: Tubal ligation, Other Additional Past Surgical Histo: Dental surgery Smoking Status: Current Every Day Smoker Alcohol Use: Heavy Drug Use: Marijuana General Adult EDM: Chief Complaint: ABDOMINAL PAIN HPI: HPI: Patient is a 39 year old female who presents with complaints of bilateral flank pains that that woke her up at approximately 1800 last Monday evening patient st ates that she thought she might have been constipated so she took MiraLAX at approximately noon today reporting that her pain did not never went away and also noting that she had not had a bowel movement for 5 days when she normally goes every day, stating the MiraLAX did not help and she did not have a bowel movement today. Patiently currently denies any nausea vomiting or diarrhea or blood in her stool. Patient rates her pain as a 6 out of 7/10 pain scale. Patient states that she also took 2 200 mg ibuprofens, and to 325 mg Tylenols just prior to her arrival today. Patient denies any fever or chills, also denies any concerns or exposure to the COVID-19 virus. Patient denies any visual changes, any nasal congestion, cough, or shortness of breath. She denies any chest pain, any swelling to her extremities, denies problems urinating, denies burning with urination, denies vaginal discharge, denies STI concerns. Patient states that her menstrual cycle started today prior to her arrival to the ER. Patient denies any back pain, or pain in her joints, skin rashes, headaches, focal weaknesses, or sensory changes. Patient denies any swelling of her glands. Patient denies any recent life changes, depressions, anxiety, suicidal or homicidal ideations. Review of Systems: Review of Systems: Constitutional: Denies fever or chills. [] Eyes: Denies change in visual acuity. [] HENT: Denies nasal congestion or sore throat. [] Respiratory: Denies cough or shortness of breath. [] Cardiovascular: Denies chest pain or edema. [] GI: Denies abdominal pain, nausea, vomiting, bloody stools or diarrhea. [] : Denies dysuria. [] Musculoskeletal: Denies back pain or joint pain. [] Integument: Denies rash. [] Neurologic: Denies headache, focal weakness or sensory changes. [] Endocrine: Denies polyuria or polydipsia. [] Lymphatic: Denies swollen glands. [] Psychiatric: Denies depression or anxiety. [] Heart Score: Risk Factors: Risk Factors: DM, Current or recent (<one month) smoker, HTN, HLP, family history of CAD, obesity. Risk Scores: Score 0 - 3: 2.5% MACE over next 6 weeks - Discharge Home Score 4 - 6: 20.3% MACE over next 6 weeks - Admit for Clinical Observation Score 7 - 10: 72.7% MACE over next 6 weeks - Early Invasive Strategies Current Medications: Current Medications Medications (Trade) Dose Ordered Sig/Earnestine Start Time Stop Time Status Last Admin Dose Admin Info (CONTRAST GIVEN -- Rx MONITORING) 1 each PRN DAILY PRN 11/10/19 23:30 11/12/19 23:29 Iohexol (Omnipaque 300 Mg/ml) 60 ml 1X ONCE 11/10/19 23:30 11/10/19 23:32 DC 11/10/19 23:27 60 ML Allergies: Allergies: Allergies Coded Allergies Type Severity Reaction Last Updated Verified No Known Drug Allergies 04/07/18 No Physical Exam: PE: Constitutional: Well developed, well nourished, no acute distress, non-toxic appearance. [] HENT: Normocephalic, atraumatic, bilateral external ears normal, oropharynx moist, no oral exudates, nose normal. [] Eyes: PERRLA, EOMI, conjunctiva normal, no discharge. [] Neck: Normal range of motion, no tenderness, supple, no stridor. [] Cardiovascular:Heart rate regular rhythm, no murmur [] Lungs & Thorax: Bilateral breath sounds clear to auscultation [] Abdomen: Bowel sounds normal, soft, no tenderness, no masses, no pulsatile masses. [] Skin: Warm, dry, no erythema, no rash. [] Back: No tenderness, no CVA tenderness. [] Extremities: No tenderness, no cyanosis, no clubbing, ROM intact, no edema. [] Neurologic: Alert and oriented X 3, normal motor function, normal sensory function, no focal deficits noted. [] Psychologic: Affect normal, judgement normal, mood normal. [] Current Patient Data: Labs: Laboratory Tests Test 11/10/19 21:28 11/10/19 21:55 11/10/19 22:17 Urine Collection Type Void Urine Color Yellow Urine Clarity Clear Urine pH 6.0 (<5.0-8.0) Urine Specific [place] <=1.005 (1.000-1.030) Urine Protein Negative mg/dL (NEG-TRACE) Urine Glucose (UA) Negative mg/dL (NEG) Urine Ketones (Stick) Negative mg/dL (NEG) Urine Blood Large (NEG) Urine Nitrite Positive (NEG) Urine Bilirubin Negative (NEG) Urine Urobilinogen Dipstick 1.0 mg/dL (0.2 mg/dL) Urine Leukocyte Esterase Large (NEG) Urine RBC >40 /HPF (0-2) Urine WBC 20-40 /HPF (0-4) Urine Squamous Epithelial Cells Mod /LPF Urine Bacteria Many /HPF (0-FEW) POC Urine HCG, Qualitative Hcg negative (Negative) White Blood Count 14.4 x10^3/uL (4.0-11.0) H Red Blood Count 3.69 x10^6/uL (3.50-5.40) Hemoglobin 11.9 g/dL (12.0-15.5) L Hematocrit 33.7 % (36.0-47.0) L Mean Corpuscular Volume 91 fL (79-100) Mean Corpuscular Hemoglobin 32 pg (25-35) Mean Corpuscular Hemoglobin Concent 35 g/dL (31-37) Red Cell Distribution Width 17.3 % (11.5-14.5) H Platelet Count 318 x10^3/uL (140-400) Neutrophils (%) (Auto) 80 % (31-73) H Lymphocytes (%) (Auto) 9 % (24-48) L Monocytes (%) (Auto) 11 % (0-9) H Eosinophils (%) (Auto) 0 % (0-3) Basophils (%) (Auto) 1 % (0-3) Neutrophils # (Auto) 11.5 x10^3/uL (1.8-7.7) H Lymphocytes # (Auto) 1.2 x10^3/uL (1.0-4.8) Monocytes # (Auto) 1.6 x10^3/uL (0.0-1.1) H Eosinophils # (Auto) 0.0 x10^3/uL (0.0-0.7) Basophils # (Auto) 0.1 x10^3/uL (0.0-0.2) Sodium Level 132 mmol/L (136-145) L Potassium Level 3.0 mmol/L (3.5-5.1) L Chloride Level 97 mmol/L (98-107) L Carbon Dioxide Level 28 mmol/L (21-32) Anion Gap 7 (6-14) Blood Urea Nitrogen 8 mg/dL (7-20) Creatinine 1.2 mg/dL (0.6-1.0) H Estimated GFR (Cockcroft-Gault) 49.5 BUN/Creatinine Ratio 7 (6-20) Glucose Level 137 mg/dL (70-99) H Calcium Level 8.2 mg/dL (8.5-10.1) L Total Bilirubin 0.4 mg/dL (0.2-1.0) Aspartate Amino Transferase (AST) 24 U/L (15-37) Alanine Aminotransferase (ALT) 31 U/L (14-59) Alkaline Phosphatase 103 U/L (46-116) Total Protein 6.7 g/dL (6.4-8.2) Albumin 3.1 g/dL (3.4-5.0) L Albumin/Globulin Ratio 0.9 (1.0-1.7) L Laboratory Tests 11/10/19 22:17 Laboratory Tests 11/10/19 22:17 Vital Signs: Vital Signs Date Time Temp Pulse Resp B/P (MAP) Pulse Ox O2 Delivery O2 Flow Rate FiO2 11/10/19 22:49 81 97/56 (70) 95 Room Air 11/10/19 21:45 98.2 18 98.2 EKG: EKG: [] Radiology/Procedures: Radiology/Procedures: PROCEDURE: KUB ADDENDUM Addendum: Findings should read as follows: Air and stool are noted throughout the colon to level the rectum in a nonobstructive bowel gas pattern. No suspicious masses or calcifications. Visualized osseous structures are unremarkable. Electronically signed by: Elizabeth Booker MD (11/10/2019 10:36 PM) [id number] DICTATED AND SIGNED BY: ELIZABETH BOOKER MD DATE: 11/10/192235 CC: ROWAN JEAN-BAPTISTE APRN; MICHELLE PINK DO; CARLY GARCIA MD ~ Exam: Abdomen one view INDICATION: Right lower quadrant pain TECHNIQUE: Frontal view the abdomen Comparisons: None FINDINGS: Air and stool noted throughout the colon fall the rectum nonobstructive bowel gas pattern. No suspicious masses or calcifications. Visualized osseous structures are unremarkable. IMPRESSION: Nonobstructive bowel gas pattern. Electronically signed by: Elizabeth Booker MD (11/10/2019 10:18 PM) [id number] DICTATED and SIGNED BY: ELIZABETH BOOKER MD DATE: 11/10/198 PROCEDURE: CT ABD PELV W/ IV CONTRST ONLY Exam: CT of abdomen and pelvis with contrast INDICATION: Right lower quadrant pain TECHNIQUE: Sequential axial images through the abdomen and pelvis obtained following the administration of 60 mL of Omni 300 IV contrast. Sagittal and coronal reformatted images were reconstructed from the axial data and reviewed. Comparisons: 06/27/2019 FINDINGS: Heart size is normal. No pericardial effusion. Strandy opacities at dependent portion lungs likely representing atelectasis. No pleural effusion. Liver, spleen, pancreas, gallbladder and adrenals are unremarkable. No perinephric inflammation or hydronephrosis. Numerous bilateral nonobstructing renal calculi. No ureteral calculi are identified. There is a vague area of hypoenhancement noted at the upper pole of the left kidney which is not definitively present on the prior study from June. There is mild adjacent perinephric stranding. Bladder is distended and appears thin-walled. Uterus is not enlarged. No abnormal adnexal mass. Large and small bowel are unremarkable. Appendix is normal. No free intra-abdominal air or fluid. No obstruction. Abdominal aorta has a normal course and caliber. Abdominal vasculature is patent. No enlarged intra-abdominal lymph nodes are identified. No suspicious osseous lesions or acute fractures. IMPRESSION: 1. Vague area of hypoenhancement at the upper pole of the left kidney with mild adjacent perinephric fat stranding. Findings could relate to pyelonephritis. Correlate with urinalysis. Additionally, short-term follow-up imaging posttreatment with either renal protocol CT or MRI is recommended to ensure no underlying lesion. 2. Normal appendix. 3. Bilateral nonobstructing renal calculi. No ureteral calculi or evidence for obstructive uropathy. Exposure: One or more of the following in the visualized dose reduction techniques were utilized for this examination: 1. Automated exposure control 2. Adjustment of the MA and/or KV according to patient size 3. Use of iterative of reconstructive technique Electronically signed by: Elizabeth Booker MD (11/10/2019 11:42 PM) [id number] DICTATED and SIGNED BY: ELIZABETH BOOKER MD DATE: 11/10/19 4240 Course & Med Decision Making: Course & Med Decision Making Pertinent Labs and Imaging studies reviewed. (See chart for details) 39-year-old patient presents emergency department complaining of bilateral flank pain that started Monday at approximately 1800. Patient states that she was asleep and was woken up by this pain. Patient denied any nausea vomiting diarrhea. She thought she was constipated because she had not pooped in a few days and took MiraLAX which did not work. Labs were ordered, along with a KUB as physical exam was concerning for constipation. Patient had pain just above McBurney's point and had a negative psoas sign, and had no CVA tenderness. KUB was negative for constipation, considering the patient had a high white count and pain near McBurney's point with rebound tenderness now that she did not have during the first exam a CAT scan to rule out appendicitis as ordered. CAT scan was read concerning for possible pyelonephritis. This was coincided with her urinalysis. A reexamination of the patient still did not elicit CVA tenderness, patient states that her pain had subsided down to a 2/10 since she was here in the emergency department, patient had not received pain medicines at that time. Vital signs remained stable, discussed possible admission to the hospital, patient stated that she wishes to be treated at home and not admitted to the hospital. At this time I feel that the patient is responsible enough to make these decisions and discussed with patient that she would be given a first dose of IV antibiotic in the emergency department, and sent home with a prescription for antibiotic Bactrim DS that she would need to take as directed until completed. Patient states that she has not been on Bactrim DS as far she is a simental of over the past 6 months. Patient was also given strict detailed instructions on returning to the emergency department if her symptoms do not subside soon, or if they worsen, or she has further concerns. Patient was amenable to discharge instructions, and return to ER concerns, and gave verbal understanding of discharge home medications. Patient discharged to home had no further questions [place]on Disclaimer: [place] Disclaimer: This electronic medical record was generated, in whole or in part, using a voice recognition dictation system. Departure Departure Impression: Primary Impression: UTI (urinary tract infection) Qualified Codes: N10 - Acute pyelonephritis Additional Impressions: Kidney infection Abdominal pain Qualified Codes: R10.31 - Right lower quadrant pain Disposition: HOME, SELF-CARE Condition: GOOD Referrals: CARLY GARCIA MD (PCP) Patient Instructions: Pyelonephritis, Adult Additional Instructions: Take medications as directed, please return to the emergency department for worsening symptoms or worsening abdominal pains, fever, or other concerns. Follow-up with your doctor in about a week for reexamination. Scripts Sulfamethoxazole/Trimethoprim (BACTRIM DS TABLET) 1 Each Tablet 1 TAB PO BID for 14 Days, #28 TAB 0 Refills Prov: ROWAN JEAN-BAPTISTE APRN 11/11/19 Justicifation of Admission Dx: Justifications for Admission: Justification of Admission Dx: N/A ROWAN JEAN-BAPTISTE APRN Nov 11, 2019 00:23
[2019-11-11 00:40] VITALS: BP 90/62
== END 2019-11-11 00:43 | disposition home or self-care (01) ==
LOC: ER 21:19
DX: N10 Acute pyelonephritis (principal); N15.9 Renal tubulo-interstitial disease, unspecified; R10.31 Right lower quadrant pain; F41.9 Anxiety disorder, unspecified; F32.9 Major depressive disorder, single episode, unspecified; K21.9 Gastro-esophageal reflux disease without esophagitis; F17.200 Nicotine dependence, unspecified, uncomplicated; F12.90 Cannabis use, unspecified, uncomplicated; F10.10 Alcohol abuse, uncomplicated; Z98.51 Tubal ligation status; Z98.890 Other specified postprocedural states
CPT/HCPCS: 36415; 74018; 74177; 80053; 81001; 81025; 85025; 87086; 96374; 96375; 99285; J0696; J1885; Q9967

== ENCOUNTER 2019-12-03 00:49 | Emergency (ER) | payer OTHER ==
[~2019-12-03] VITALS: Ht 162.6 cm; Wt 77.0 kg
[~2019-12-03 00:49] MED LIST changes: +SULF1TAB24 PO
[2019-12-03 02:57] LABS: BILIRUBIN,URINE SMALL (NEG); CLARITY,URINE CLEAR; COLOR,URINE YELLOW; NITRITE,URINE NEGATIVE (NEG); PROTEIN,URINE >=300 mg/dL (NEG-TRACE)
[2019-12-03 03:07] LABS: SQUAMOUS EPITHELIAL CELL,UR MOD /LPF
[2019-12-03 03:08] LABS: BACTERIA,URINE MODERATE /HPF (0-FEW); RBC,URINE 0 /HPF (0-2)
--- NOTE | 2019-12-03 03:35 | PHYS DOC ---
Past Medical History Past Medical History: Anxiety, Bipolar, Depression, GERD, Other Additional Past Medical Histor: multipersonality disorder, gastritis; PTSD Past Surgical History: Tubal ligation, Other Additional Past Surgical Histo: Dental surgery Smoking Status: Current Every Day Smoker Alcohol Use: Heavy Drug Use: Marijuana General Adult EDM: Chief Complaint: NAUSEA/VOMITING/DIARRHA HPI: HPI: Patient is a 39 year old female who presents with complaints of pain in the epigastrium. Patient reports that on Monday she began to have problems with vomiting. She reports that she has this intermittently. Since Monday she has had multiple episodes of vomiting and reports that she vomited a total of 5 times on Monday. She reports no diarrhea, melena, hematemesis or hematochezia. She also denies fever, chills or sweats. She does complain of chronic heartburn. She describes the pain in the epigastrium is burning, nonradiating but associated with a burning in her chest at times. Patient reports she is not taking any medication for this on a regular basis. Patient only takes Latuda for bipolar illness Review of Systems: Review of Systems: Constitutional: Denies fever or chills. [] Eyes: Denies change in visual acuity. [] HENT: Denies nasal congestion or sore throat. [] Respiratory: Denies cough or shortness of breath. [] Cardiovascular: Denies chest pain or edema. [] GI: See HPI. [] : Denies dysuria. [] Musculoskeletal: Denies back pain or joint pain. [] Integument: Denies rash. [] Neurologic: Denies headache, focal weakness or sensory changes. [] Endocrine: Denies polyuria or polydipsia. [] Lymphatic: Denies swollen glands. [] Psychiatric: Denies depression or anxiety. [] Heart Score: Risk Factors: Risk Factors: DM, Current or recent (<one month) smoker, HTN, HLP, family history of CAD, obesity. Risk Scores: Score 0 - 3: 2.5% MACE over next 6 weeks - Discharge Home Score 4 - 6: 20.3% MACE over next 6 weeks - Admit for Clinical Observation Score 7 - 10: 72.7% MACE over next 6 weeks - Early Invasive Strategies Current Medications: Current Medications Medications (Trade) Dose Ordered Sig/Earnestine Start Time Stop Time Status Last Admin Dose Admin Al Hydroxide/Mg Hydroxide (Mylanta Plus Xs) 30 ml 1X ONCE 12/03/19 03:45 12/03/19 03:46 UNV Famotidine (Pepcid) 20 mg 1X ONCE 12/03/19 03:45 12/03/19 03:46 UNV Metoclopramide HCl (Reglan Vial) 10 mg 1X ONCE 12/03/19 03:45 12/03/19 03:46 UNV Sodium Chloride 1,000 ml @ 1,000 mls/hr 1X ONCE 12/03/19 03:45 12/03/19 04:44 UNV Allergies: Allergies: Allergies Coded Allergies Type Severity Reaction Last Updated Verified No Known Drug Allergies 04/07/18 No Physical Exam: PE: Constitutional: Well developed, well nourished, no acute distress, non-toxic appearance. [] HENT: Normocephalic, atraumatic, bilateral external ears normal, oropharynx dry no oral exudates, nose normal. [] Eyes: PERRLA, EOMI, conjunctiva normal, no discharge. [] Neck: Normal range of motion, no tenderness, supple, no stridor. [] Cardiovascular:Heart rate regular rhythm, no murmur [] Lungs & Thorax: Bilateral breath sounds clear to auscultation [] Abdomen: Bowel sounds normal, soft, tenderness in the epigastrium, no guarding, no rebound, negative Carrizales sign, no masses, no pulsatile masses. [] Skin: Warm, dry, no erythema, no rash. [] Back: No tenderness, no CVA tenderness. [] Extremities: No tenderness, no cyanosis, no clubbing, ROM intact, no edema. [] Neurologic: Alert and oriented X 3, normal motor function, normal sensory function, no focal deficits noted. [] Psychologic: Affect normal, judgement normal, mood normal. [] Current Patient Data: Labs: Laboratory Tests Test 12/03/19 02:47 12/03/19 02:54 Urine Collection Type Unknown Urine Color Yellow Urine Clarity Clear Urine pH 7.0 (<5.0-8.0) Urine Specific [place] 1.020 (1.000-1.030) Urine Protein >=300 mg/dL (NEG-TRACE) Urine Glucose (UA) Negative mg/dL (NEG) Urine Ketones (Stick) >=80 mg/dL (NEG) Urine Blood Negative (NEG) Urine Nitrite Negative (NEG) Urine Bilirubin Small (NEG) Urine Urobilinogen Dipstick 1.0 mg/dL (0.2 mg/dL) Urine Leukocyte Esterase Negative (NEG) Urine RBC 0 /HPF (0-2) Urine WBC 1-4 /HPF (0-4) Urine Squamous Epithelial Cells Mod /LPF Urine Bacteria Moderate /HPF (0-FEW) Urine Mucus Mod /LPF POC Urine HCG, Qualitative Hcg negative (Negative) Vital Signs: Vital Signs Date Time Temp Pulse Resp B/P (MAP) Pulse Ox O2 Delivery O2 Flow Rate FiO2 12/03/19 01:18 97.5 66 18 141/101 (114) 98 Room Air 97.5 EKG: EKG: [] Radiology/Procedures: Radiology/Procedures: [] Course & Med Decision Making: Course & Med Decision Making Pertinent Labs and Imaging studies reviewed. (See chart for details) 0554-patient was seen and reevaluated. Patient reports that things are going much better. She reports that her abdominal pain is resolved and she is no longer nauseated. I discussed with her treatment plan, reasons to return and need for follow-up. [] Dragon Disclaimer: Dragon Disclaimer: This electronic medical record was generated, in whole or in part, using a voice recognition dictation system. Departure Departure Impression: Primary Impression: Acute gastritis Qualified Codes: K29.00 - Acute gastritis without bleeding Additional Impressions: Mild dehydration Nausea & vomiting Qualified Codes: R11.14 - Bilious vomiting Hypokalemia Disposition: HOME, SELF-CARE Condition: IMPROVED Referrals: CARLY GARCIA MD (PCP) Patient Instructions: Gastritis, Adult Scripts Metoclopramide Hcl (REGLAN) 10 Mg Tablet 1 TAB PO Q6HRS PRN for NAUSEA/VOMITING, #10 TAB 0 Refills before food and bedtime Prov: GUS HERNANDEZ MD 12/03/19 Omeprazole (OMEPRAZOLE) 40 Mg Capsule.dr 40 MG PO DAILY for 30 Days, #30 CAP Take 1/2-hour before the first meal the day Prov: GUS HERNANDEZ MD 12/03/19 Justicifation of Admission Dx: Justifications for Admission: Justification of Admission Dx: N/A GUS HERNANDEZ MD Dec 03, 2019 03:35
[2019-12-03 03:54] LABS: BARBITURATES NEG (NEG); BENZODIAZEPINES POS (NEG); CANNABINOIDS POS (NEG); COCAINE NEG (NEG); METHADONE NEG (NEG); OPIATES NEG (NEG); PHENCYCLIDINE NEG (NEG)
[2019-12-03 04:00] LABS: AMPHETAMINE/METHAMPHETAMINE NEG (NEG)
[2019-12-03] MEDS ORDERED: FAMOTIDINE 20 MG TABLET. PO ONE (04:00)
[2019-12-03] MEDS ORDERED: MAG HYDROX/ALUMINUM HYD/SIMETH 30 ML ORAL.SUSP PO ONE (04:00)
[2019-12-03] MEDS ORDERED: IV NORMAL SALINE 1000ML BAG 1,000 ML IV ONE (04:00)
[2019-12-03] MEDS ORDERED: METOCLOPRAMIDE HCL 10 MG/2 ML VIAL. IVP ONE (04:00)
[2019-12-03 04:38] LABS: BASO # 0.1 x10^3/uL (0.0-0.2); BASO % 0 % (0-3); EOS % 0 % (0-3); HEMATOCRIT 41.1 % (36.0-47.0); HEMOGLOBIN 14.3 g/dL (12.0-15.5); LYMPH # 2.1 x10^3/uL (1.0-4.8); LYMPH % 13 % (24-48); MEAN CORPUSCULAR HEMOGLOBIN 32 pg (25-35); MEAN CORPUSCULAR HGB CONC 35 g/dL (31-37); MEAN CORPUSCULAR VOLUME 90 fL (79-100); MONO # 1.1 x10^3/uL (0.0-1.1); MONO % 7 % (0-9); NEUT # 12.1 x10^3/uL (1.8-7.7); NEUT % 79 % (31-73); PLATELET COUNT 471 x10^3/uL (140-400); RED BLOOD COUNT 4.55 x10^6/uL (3.50-5.40); RED CELL DISTRIBUTION WIDTH 17.8 % (11.5-14.5); WHITE BLOOD COUNT 15.3 x10^3/uL (4.0-11.0)
[2019-12-03 04:58] LABS: CALCIUM 9.8 mg/dL (8.5-10.1); CREATININE 0.6 mg/dL (0.6-1.0); GFR 110.2
[2019-12-03 05:03] LABS: ALBUMIN/GLOBULIN RATIO 0.9 (1.0-1.7); TOTAL BILIRUBIN 0.6 mg/dL (0.2-1.0); TOTAL PROTEIN 8.4 g/dL (6.4-8.2)
[2019-12-03] MEDS ORDERED: OMEP40CA45 PO (05:59)
[2019-12-03] MEDS ORDERED: METO10TA81 PO (05:59)
[2019-12-03 06:30] VITALS: BP 132/85
[2019-12-03] MEDS ORDERED: POTASSIUM CHLORIDE 20 MEQ TABLET.ER. PO ONE (06:30)
== END 2019-12-03 06:46 | disposition home or self-care (01) ==
LOC: ER 00:49
DX: K29.00 Acute gastritis without bleeding (principal); E86.0 Dehydration; R11.14 Bilious vomiting; E87.6 Hypokalemia; K21.9 Gastro-esophageal reflux disease without esophagitis; F31.9 Bipolar disorder, unspecified; F17.200 Nicotine dependence, unspecified, uncomplicated; F10.20 Alcohol dependence, uncomplicated; Y90.9 Presence of alcohol in blood, level not specified; Z98.51 Tubal ligation status
CPT/HCPCS: 36415; 80053; 80307; 81001; 81025; 83690; 85025; 87086; 96361; 96374; 99285; J2765; J7030

== ENCOUNTER → 2019-12-09 | Outpatient (CLI) | payer OTHER ==
[2019-12-03 06:30] VITALS: BP 132/85
[~2019-12-09] MED LIST changes: +LURA60TA PO; +METO10TA81 PO
== END | disposition home or self-care (01) ==
LOC: LAB 13:32
PROVIDERS: ATTEND Internal Medicine Gastroenterology
DX: Z01.812 Encounter for preprocedural laboratory examination (principal); Z20.828 Contact with and (suspected) exposure to other viral communicable diseases; Z13.9 Encounter for screening, unspecified
CPT/HCPCS: U0003-CS

== ENCOUNTER → 2019-12-12 | Day surgery (SDC) | payer OTHER ==
[~2019-12-12] MED LIST changes: +IV RINGERS,LACTATED 1000ML 1,000 ML IV SCH; +LIDOCAINE 2% PF 5 ML VIAL. ONE; +PROPOFOL 10 MG/ML (20ML) VIAL. IV ONE
--- NOTE | 2019-12-12 13:55 | HP ---
ADMIT DATE: 12/12/2019 REFERRING PHYSICIAN: Dr. Ashley Francis. HISTORY OF PRESENT ILLNESS: This is a 39-year-old female with past medical history significant for GERD, anxiety, seen for dysphagia for solids and for liquids and on omeprazole 40 mg, intermittently with improved control of her heartburn. She does use nicotine and alcohol, but not caffeine as risk factors for reflux. Weight has increased in the past year. With continued issues she requests additional evaluation. PAST MEDICAL HISTORY: GERD and anxiety. ALLERGIES: None. MEDICATIONS: Include Xanax, Latuda, omeprazole and Zofran. FAMILY AND SOCIAL HISTORY: Significant for Crohn's disease and hypertension. SOCIAL HISTORY: She is a smoker and drinker. FAMILY HISTORY: Noncontributory. REVIEW OF SYSTEMS: Reveals as per records. PAST SURGICAL HISTORY: Noncontributory. PHYSICAL EXAMINATION: GENERAL: Reveals a well-nourished, well-developed female who is alert, cooperative, in no acute distress. VITAL SIGNS: Temperature 98.1, pulse 87, respirations 20. LUNGS: Clear. CARDIOVASCULAR: Reveals an S1, S2 without S3, S4 or appreciable murmur. ABDOMEN: Reveals a soft abdomen, normal bowel sounds, without appreciable hepatosplenomegaly. EXTREMITIES: Reveals no cyanosis, clubbing or edema. IMPRESSION: Dysphagia with reflux. Differential includes Schatzki's ring, malignancy, achalasia, eosinophilic esophagitis and/or Ha's with stricture. Upper endoscopy is therefore recommend, possible biopsy and/or dilatation. Risks and benefits were discussed. The patient is willing to proceed. JOSE LUIS YIP MD DR: RONALD/nts JOB#: [id number] / [id number]
[2019-12-12 14:04] VITALS: BP 117/66
--- NOTE | 2019-12-16 19:06 | PATHOLOGY ---
[facility] Accession Number: [id number] . 01 Material submitted: . esophagus - ESOPHAGEAL BIOPSY . 01 Clinical history: . DYSPHAGIA, REFLUX . 02 Diagnosis: Esophagus, endoscopic biopsy: - Esophageal squamous mucosa with features of reflux esophagitis, and focal acute inflammation. - Negative for intestinal metaplasia, dysplasia, and malignancy. - POSITIVE for fungal and hyphal forms consistent with Humera. (MLK:service girl; 12/13/2019) MBR 12/16/2019 1147 Local . 02 Electronically signed: . Katty Khoury MD, Pathologist NPI- [id number] . 01 Gross description: . The specimen is received in formalin, labeled "Mcmullen, Elin, esophageal BX" and consists of multiple fragments of pink tissue measuring 1.0 x 0.4 x 0.2 cm in aggregate which are entirely submitted in A1. (SDY; 12/12/2019) SYU/SYU 12/12/2019 1802 Local . 02 Pathologist provided ICD-10: R13.10 . 02 CPT . 308099 Specimen Comment: A courtesy copy of this report has been sent to [phone], [phone] Specimen Comment: [id number] Specimen Comment: Report sent to / DR GARCIA Performed at: 01 [facility] [address] [id number] MD Johnnie Valero MD Phone: [phone] Performed at: 02 [facility] [address] [id number] MD Darin Loaiza MD Phone: [phone]
== END | disposition home or self-care (01) ==
LOC: ENDOS 11:26
PROVIDERS: ATTEND Internal Medicine Gastroenterology
DX: K21.9 Gastro-esophageal reflux disease without esophagitis (principal); C76.8 Malignant neoplasm of other specified ill-defined sites; F41.9 Anxiety disorder, unspecified; Z82.49 Family history of ischemic heart disease and other diseases of the circulatory system; Z87.891 Personal history of nicotine dependence; Z98.890 Other specified postprocedural states; Z79.899 Other long term (current) drug therapy
CPT/HCPCS: 43239; 43450; 81025; J2704; 88305

== ENCOUNTER 2020-02-25 18:30 | Emergency (ER) | payer OTHER ==
[~2020-02-25] VITALS: Ht 162.6 cm; Wt 70.0 kg
[~2020-02-25 18:30] MED LIST changes: -IV RINGERS,LACTATED 1000ML 1,000 ML IV SCH; -LIDOCAINE 2% PF 5 ML VIAL. ONE; -PROPOFOL 10 MG/ML (20ML) VIAL. IV ONE
[2020-02-25] MEDS ORDERED: IV NORMAL SALINE 1000ML BAG 1,000 ML IV SCH (18:57)
[2020-02-25] MEDS ORDERED: METOCLOPRAMIDE HCL 10 MG/2 ML VIAL. IVP ONE (19:00)
[2020-02-25] MEDS ORDERED: FAMOTIDINE 20 MG/2 ML VIAL IVP ONE (19:00)
[2020-02-25] MEDS ORDERED: IV NORMAL SALINE 1000ML BAG 1,000 ML IV ONE (19:00)
--- NOTE | 2020-02-25 19:17 | PHYS DOC ---
Past Medical History Past Medical History: Anxiety, Bipolar, Depression, GERD, Other Additional Past Medical Histor: multipersonality disorder, gastritis; PTSD Past Surgical History: Tubal ligation, Other Additional Past Surgical Histo: Dental surgery Smoking Status: Current Every Day Smoker Alcohol Use: Heavy Drug Use: Marijuana General Adult EDM: Chief Complaint: MULTIPLE COMPLAINTS HPI: HPI: 39-year-old female past medical history significant for anxiety, bipoalr disorder, PTSD and gastritis, presents the ED with complaints of multiple episodes of nausea and blood-tinged bright red emesis for the past 3 to 4 days, no bowel movement in the last 3 weeks, hasn't been able to keep anything down. Patient states she has not had any symptoms for Covid but was tested -2 weeks ago due to a friend who was also tested (friends' test was negative). Patient reports she has been clean from alcohol although her symptoms started shortly after she drank at her nephew's birthday republican at a bar. Also smokes marijuana routinely. Has a chronic history of gastritis and has follow-up outpatient with Dr. Hernandez, is pending CT imaging and ultrasound of her gallbladder to assess for cholelithiasis. Past surgical history dental extractions and tubal ligation. Declines offer for Covid testing in ED. Review of Systems: Review of Systems: Constitutional: Denies fever or chills. [] Eyes: Denies change in visual acuity. [] HENT: Denies nasal congestion or sore throat. [] Respiratory: Denies cough or hemoptysis Cardiovascular: Denies chest pain or edema. [] GI: Denies diarrhea, melena, hematochezia : Denies dysuria or hematuria Musculoskeletal: Denies back pain or joint pain or flank pain Integument: Denies rash or diaphoresis Neurologic: Denies headache, focal weakness or sensory changes, or nuchal rigidity Endocrine: Denies polyuria or polydipsia. [] Lymphatic: Denies swollen glands. [] Psychiatric: Denies depression or anxiety. [] Heart Score: Risk Factors: Risk Factors: DM, Current or recent (<one month) smoker, HTN, HLP, family history of CAD, obesity. Risk Scores: Score 0 - 3: 2.5% MACE over next 6 weeks - Discharge Home Score 4 - 6: 20.3% MACE over next 6 weeks - Admit for Clinical Observation Score 7 - 10: 72.7% MACE over next 6 weeks - Early Invasive Strategies Current Medications: Current Medications Medications (Trade) Dose Ordered Sig/Earnestine Start Time Stop Time Status Last Admin Dose Admin Famotidine (Pepcid Vial) 20 mg 1X ONCE 02/25/20 19:00 02/25/20 19:05 DC Metoclopramide HCl (Reglan Vial) 10 mg 1X ONCE 02/25/20 19:00 02/25/20 19:05 DC Sodium Chloride 1,000 ml @ 1,000 mls/hr 1X ONCE 02/25/20 19:00 02/25/20 19:59 Allergies: Allergies: Allergies Coded Allergies Type Severity Reaction Last Updated Verified No Known Drug Allergies 12/12/19 No Physical Exam: PE: Constitutional: afebrile. non-toxic but fatigued appearance. [] HENT: Normocephalic, atraumatic, bilateral external ears normal, oropharynx dry Eyes: EOMI, conjunctiva normal, no discharge. [] Neck: Normal range of motion, supple, no stridor. [] Cardiovascular: tachycardia, no murmur [] Lungs & Thorax: Bilateral breath sounds clear to auscultation [] Abdomen: Bowel sounds normal, soft, no tenderness, no masses, no pulsatile masses, no pain at McBurney's point, no Carrizales sign, no Rovsing sign, no active linus pain, clear emesis with some food particles in basin no coffee-ground emesis or hematemesis Skin: Warm, dry, no erythema, no rash. [] Back: No tenderness, no CVA tenderness. [] Extremities: No tenderness, no cyanosis, no clubbing, ROM intact, no edema. [] Neurologic: Alert and oriented X 3, normal motor function, normal sensory function, no focal deficits noted. [] Psychologic: Affect normal, judgement normal, mood normal. [] EKG: EKG: Sinus rhythm at 90 bpm, no axis deviation, no obvious T wave inversions, ST elevations or ST depressions, normal intervals Radiology/Procedures: Radiology/Procedures: IMAGING REPORT Signed PATIENT: ALEXA CLEMENTS ACCOUNT: [id number] : 1980 LOCATION: ER AGE: 39 SEX: F EXAM STATUS: REG ER ORD. PHYSICIAN: RONALD SMITH DO REASON: n/v, constipation PROCEDURE: CT ABD PELV W/ IV CONTRST ONLY CT scan abdomen and pelvis with contrast 02/25/2020 CLINICAL HISTORY: Nausea and vomiting and constipation. TECHNIQUE: After the intravenous administration of 75 cc of Omnipaque 300 only, contiguous, 5 mm axial sections were obtained through the abdomen and pelvis. One or more of the following individualized dose reduction techniques were utilized for this study: 1. Automated exposure control. 2. Adjustment of the mA and/or kV according to patient size. 3. Use of iterative reconstruction technique. FINDINGS: Comparison study is dated 11/10/2019. Images through the lung bases demonstrate minimal dependent subsegmental atelectasis bilaterally. The liver, spleen, pancreas and adrenal glands are within normal limits. Rounded low-attenuation lesions are seen involving both kidneys which measure 5 mm to 2 cm in size. These likely represent cysts. No further imaging workup is recommended. Patchy areas of calcification are seen within the medullary portions of both kidneys consistent with medullary nephrocalcinosis. The abdominal aorta tapers normally. The gallbladder is well-distended. No free fluid or free air is seen within the abdomen. There is no evidence of bowel obstruction. The appendix is well-visualized and is within normal limits. Images through the pelvis demonstrate the urinary bladder to be contracted. Calcifications are seen within the pelvis consistent with phleboliths. A 3.5 cm oval-shaped low-attenuation structure is seen in the right ovary. This likely represents a right ovarian cyst. No free fluid is seen. The osseous structures are unchanged. IMPRESSION: 3.5 cm probable right ovarian cyst. Electronically signed by: Lee Santoyo MD (02/25/2020 8:57 PM) [id number] DICTATED and SIGNED BY: LEE SANTOYO MD DATE: 02/25/202056 IMAGING REPORT Signed PATIENT: ALEXA CLEMENTS ACCOUNT: [id number] : 1980 LOCATION: ER AGE: 39 SEX: F EXAM STATUS: REG ER ORD. PHYSICIAN: RONALD SMITH DO REASON: soa PROCEDURE: CHEST AP ONLY Exam: Chest one view INDICATION: Short of air TECHNIQUE: Frontal view of the chest Comparisons: 01/25/2017 FINDINGS: The cardiomediastinal silhouette and pulmonary vessels are within normal limits. The lung and pleural spaces are clear. IMPRESSION: No acute cardiopulmonary process. Electronically signed by: Elizabeth Booker MD (02/25/2020 9:04 PM) [facility] DICTATED and SIGNED BY: ELIZABETH BOOKER MD DATE: 02/25/202103 Course & Med Decision Making: Course & Med Decision Making Pertinent Labs and Imaging studies reviewed. (See chart for details) Concern for nausea and vomiting, etiology w/broad ddx (binge drinking, thc use, viral syndrome, pyelonephritis, etc). Patient with leukocytosis of 16 with 1 band, no lactic acidosis. Heart rate now at 97. Pt now reports she's feeling better and requests to be discharged. CT w/no obstruction. Will DC home with antiemetics and Keflex for 14 days to cover for pyelonephritis (U/a contaminated, no flank pain). Strict ED return precautions were given for fever, dehydration, intractable nausea or vomiting or flulike symptoms. Pt meets sirs criteria but is not toxic appearing. I encouraged urgent outpatient follow-up with PMD. Life-threatening processes were considered but are low suspicion at this time, given history and physical exam. Pt was educated on all prescription medications and adverse effects. All patient's questions were answered and pt was stable at time of discharge. Life/limb-threatening differential includes but is not limited to, aortic dissection, aortic aneurysm, acute coronary syndrome, surgical abdomen (appendicitis, cholecystitis, ischemic bowel, strangulated hernia, etc), bowel obstruction or volvulus, bladder outlet obstruction, gastrointestinal bleeding, inflammatory bowel disease, peptic ulcer disease, sepsis, diverticular disease, ureterolithiasis, nephrolithiasis, ovarian or testicular torsion, ectopic , vaginal hemorrhage, or genitourinary infection. I spoken with the patient and her caregivers. I explained the patient's c ondition, diagnoses and treatment plan based on the information available to me at this time. I have answered the patient and her caregiver's questions and addressed any concerns. The patient and her caregivers have a good understanding of patient's diagnosis, condition and treatment plan as can be expected at this point. Vital signs have been stable. Patient's condition is stable and appropriate for discharge from the emergency department. Patient will pursue further outpatient evaluation with primary care physician or other designated or consulting physician as outlined in the discharge instructions. The patient and/or caregivers are agreeable to this plan of care and follow-up instructions have been explained in detail. The patient and/or caregivers have received these instructions in written form and have expressed an understanding of the discharge instructions. The patient and/or caregivers are aware that any significant change of condition or worsening of symptoms should prompt immediate return to this or the closest emergency department or call to 911. Idalmis Disclaimer: Idalmis Disclaimer: This electronic medical record was generated, in whole or in part, using a voice recognition dictation system. Departure Departure Impression: Primary Impression: UTI (urinary tract infection) Additional Impression: Nausea & vomiting Disposition: 01 DC HOME SELF CARE/HOMELESS Condition: STABLE Referrals: CARLY GARCIA MD (PCP) follow up in 3-5 days Patient Instructions: Nausea and Vomiting, Pyelonephritis, Adult, Urinary Tract Infection Additional Instructions: EMERGENCY DEPARTMENT GENERAL DISCHARGE INSTRUCTIONS Thank you for coming to [facility] Emergency Department (ED) today and trusting us with you care. We trust that you had a positive experience in our Emergency Department. If you wish to speak to the department management, you may call the Director at [phone]. YOUR FOLLOW UP INSTRUCTIONS ARE FOLLOWS: 1. Do you have a private Doctor? If you do not have a private doctor, please ask for a resource list of physicians or clinics that may be able to assist you with follow up care. 2. The Emergency Physicain has interpreted your x-rays. The X-Ray specialist will also review them. If there is a change in the findings, you will be notified in 48 hours when at all possible. 3. A lab test or culture has been done, your results will be reviewed and you will be notified if you need a change in treatment. ADDITIONAL INSTRUCTIONS AND INFORMATION: 1. Your care today has been supervised by a physician who is specially trained in emergency care. Many problems require more than one evaluation for a complete diagnosis and treatment. We recommend that you schedule your follow up appointment as recommended to ensure complete treatment of you illness or injury. If you are unable to obtain follow up care and continue to have a problem, or if your condition worsens, we recommend that you return to the ED. 2. We are not able to safely determine your condition over the phone nor are we able to give sound medical advice over the phone. For these safety reasons, if you call for medical advice we will ask you to come to the ED for further evaluation. 3. If you have any questions regarding these discharge instructions please call the ED at [phone]. SAFETY INFORMATION: In the interest of safety, wellness, and injury prevention; we encourage you to wear your sealbelt, if you smoke; quite smoking, and we encourage family to use a protective helmet for bicycling and other sporting events that present an increased risk for head injury. IF YOUR SYMPTOMS WORSEN OR NEW SYMPTOMS DEVELOP, OR YOU HAVE CONCERNS ABOUT YOUR CONDITION; OR IF YOUR CONDITION WORSENS WHILE YOU ARE WAITING FOR YOUR FOLLOW UP APPOINTMENT; EITHER CONTACT YOUR PRIMARY CARE DOCTOR, THE PHYSICIAN WHOSE NAME AND NUMBER YOU WERE GIVEN, OR RETURN TO THE ED IMMEDIATELY. Scripts Cephalexin (KEFLEX) 500 Mg Capsule 2 CAP PO Q12HR for 14 Days, #56 CAP Prov: RONALD SMITH DO 02/25/20 Ondansetron Hcl (ZOFRAN) 4 Mg Tablet 1 TAB PO PRN Q6-8HRS, #12 TAB Prov: RONALD SMITH DO 02/25/20 RONALD SMITH DO Feb 25, 2020 19:17
[2020-02-25 19:31] LABS: BASO # 0.1 x10^3/uL (0.0-0.2); BASO % 1 % (0-3); EOS % 0 % (0-3); HEMOGLOBIN 18.6 g/dL (12.0-15.5); LYMPH # 2.3 x10^3/uL (1.0-4.8); LYMPH % 14 % (24-48); MEAN CORPUSCULAR HEMOGLOBIN 31 pg (25-35); MEAN CORPUSCULAR HGB CONC 34 g/dL (31-37); MEAN CORPUSCULAR VOLUME 91 fL (79-100); MONO # 1.1 x10^3/uL (0.0-1.1); MONO % 7 % (0-9); NEUT # 12.6 x10^3/uL (1.8-7.7); NEUT % 78 % (31-73); PLATELET COUNT 406 x10^3/uL (140-400); RED BLOOD COUNT 6.07 x10^6/uL (3.50-5.40); RED CELL DISTRIBUTION WIDTH 15.6 % (11.5-14.5); WHITE BLOOD COUNT 16.1 x10^3/uL (4.0-11.0)
[2020-02-25] MEDS ORDERED: IOHEXOL 300 MG/ML 100ML VIAL. IV ONE (19:45)
[2020-02-25] MEDS ORDERED: CONTRAST GIVEN. MC PRN (19:45)
[2020-02-25 19:48] LABS: GFR 61.1; POTASSIUM 3.3 mmol/L (3.5-5.1)
[2020-02-25 19:53] LABS: DIRECT BILIRUBIN 0.4 mg/dL (0.0-0.2); PREG TEST PT QUAL NEGATIVE (NEG); TOTAL PROTEIN 8.8 g/dL (6.4-8.2)
[2020-02-25 20:11] LABS: % BANDS 1 % (0-9); % LYMPHS 15 % (24-48); % MONOS 4 % (0-10); % SEGS 80 % (35-66); PLT ESTIMATE INCREASED (ADEQUATE)
[2020-02-25 20:12] LABS: PLATELET CLUMP PRESENT
[2020-02-25 20:20] LABS: BILIRUBIN,URINE LARGE (NEG); CLARITY,URINE CLEAR; COLOR,URINE AMBER; NITRITE,URINE NEGATIVE (NEG); PROTEIN,URINE >=300 mg/dL (NEG-TRACE)
[2020-02-25 20:26] LABS: BACTERIA,URINE MODERATE /HPF (0-FEW); RBC,URINE OCC /HPF (0-2)
[2020-02-25 20:27] LABS: BARBITURATES NEG (NEG); BENZODIAZEPINES POS (NEG); CANNABINOIDS NEG (NEG); COCAINE NEG (NEG); HYALINE CASTS, URINE FEW /HPF; METHADONE NEG (NEG); OPIATES NEG (NEG); PHENCYCLIDINE NEG (NEG)
[2020-02-25 20:34] LABS: AMPHETAMINE/METHAMPHETAMINE NEG (NEG)
--- NOTE | 2020-02-25 20:59 | RAD ---
CT scan abdomen and pelvis with contrast 02/25/2020 CLINICAL HISTORY: Nausea and vomiting and constipation. TECHNIQUE: After the intravenous administration of 75 cc of Omnipaque 300 only, contiguous, 5 mm axial sections were obtained through the abdomen and pelvis. One or more of the following individualized dose reduction techniques were utilized for this study: 1. Automated exposure control. 2. Adjustment of the mA and/or kV according to patient size. 3. Use of iterative reconstruction technique. FINDINGS: Comparison study is dated 11/10/2019. Images through the lung bases demonstrate minimal dependent subsegmental atelectasis bilaterally. The liver, spleen, pancreas and adrenal glands are within normal limits. Rounded low-attenuation lesions are seen involving both kidneys which measure 5 mm to 2 cm in size. These likely represent cysts. No further imaging workup is recommended. Patchy areas of calcification are seen within the medullary portions of both kidneys consistent with medullary nephrocalcinosis. The abdominal aorta tapers normally. The gallbladder is well-distended. No free fluid or free air is seen within the abdomen. There is no evidence of bowel obstruction. The appendix is well-visualized and is within normal limits. Images through the pelvis demonstrate the urinary bladder to be contracted. Calcifications are seen within the pelvis consistent with phleboliths. A 3.5 cm oval-shaped low-attenuation structure is seen in the right ovary. This likely represents a right ovarian cyst. No free fluid is seen. The osseous structures are unchanged. IMPRESSION: 3.5 cm probable right ovarian cyst. Electronically signed by: Lee Santoyo MD (02/25/2020 8:57 PM) [id number]
--- NOTE | 2020-02-25 21:07 | RAD ---
Exam: Chest one view INDICATION: Short of air TECHNIQUE: Frontal view of the chest Comparisons: 01/25/2017 FINDINGS: The cardiomediastinal silhouette and pulmonary vessels are within normal limits. The lung and pleural spaces are clear. IMPRESSION: No acute cardiopulmonary process. Electronically signed by: Elizabeth Allen MD (02/25/2020 9:04 PM) SIOBHAN
[2020-02-25 22:00] VITALS: BP 104/73
[2020-02-25] MEDS ORDERED: CEPH-264 PO (22:10)
[2020-02-25] MEDS ORDERED: ONDA4TAB7 PO (22:10)
== END 2020-02-25 22:32 | disposition home or self-care (01) ==
LOC: ER 18:30
DX: N39.0 Urinary tract infection, site not specified (principal); R11.2 Nausea with vomiting, unspecified; F31.9 Bipolar disorder, unspecified; F41.9 Anxiety disorder, unspecified; K21.9 Gastro-esophageal reflux disease without esophagitis; F43.10 Post-traumatic stress disorder, unspecified; F17.200 Nicotine dependence, unspecified, uncomplicated
CPT/HCPCS: 36415; 71045; 74177; 80048; 80076; 80307; 81001; 83605; 83690; 83735; 84484; 84703; 85007; 85025; 87040; 87086; 96361; 96374; 96375; 99285; J2765; J3490; J7030; Q9967

== ENCOUNTER → 2020-02-27 | Outpatient (CLI) | payer OTHER ==
[2020-02-25 22:00] VITALS: BP 104/73
[~2020-02-27] MED LIST changes: +CEPH-264 PO
--- NOTE | 2020-02-27 12:22 | RAD ---
Right upper quadrant abdominal ultrasound without comparison for persistent nausea and vomiting. TECHNIQUE AND FINDINGS: Real-time grayscale and color Doppler evaluation of the right upper quadrant abdominal organs is performed. Much of the pancreas is obscured by overlying bowel gas. Visualized portions the pancreatic head are grossly unremarkable. IVC is patent. The liver measures 14.3 cm in length. Adjacent to the falciform ligament, there is a 2.4 x 1.7 x 4.5 cm ovoid heterogeneously hyperechoic focus which may is most consistent with focal fatty infiltration. The right kidney measures 11.0 x 4.6 x 3.9 cm. No hydronephrosis or perinephric fluid. Normal color flow. There is increased echogenicity of the medullary components consistent with medullary sponge kidney. The gallbladder is fluid distended and notable for dependent sludge without shadowing stones, gallbladder wall thickening, pericholecystic fluid, or sonographic Carrizales sign. IMPRESSION: 1. Focal fatty infiltration along falciform ligament within the liver, benign. 2. Medullary sponge kidney. 3. Gallbladder sludge without evidence of acute cholecystitis. Electronically signed by: Christiano Lovett MD (02/27/2020 12:19 PM) [id number]
== END ==
LOC: US 09:58
PROVIDERS: ATTEND Internal Medicine Gastroenterology
DX: K76.0 Fatty (change of) liver, not elsewhere classified (principal); R11.2 Nausea with vomiting, unspecified
CPT/HCPCS: 76705